=== PATIENT | male | born 1955 | race Caucasian/White ===

== ENCOUNTER 2017-03-30 09:43 | Inpatient (IN) | payer OTHER ==
[~2017-03-30] VITALS: Ht 180.3 cm; Wt 98.1 kg
[2017-03-30] VITALS (12 sets, daily range): BP systolic 96–160; BP diastolic 54–96
[2017-03-30] MEDS ORDERED: NS IV 1000 ML 1,000 ML IV ONE ×2 (09:57→10:57)
[2017-03-30 10:16] LABS: BASOPHILS # (AUTO) 0.1 10^3/uL (0.0-0.1); BASOPHILS % (AUTO) 1 % (0-10); EOSINOPHILS % (AUTO) 0 % (0-10); LYMPHOCYTES # (AUTO) 0.8 X 10^3 (1.0-4.0); LYMPHOCYTES % (AUTO) 16 % (12-44); MEAN CORPUSCULAR HEMOGLOBIN 30 PG (25-34); MEAN CORPUSCULAR HGB CONC 37 G/DL (32-36); MEAN CORPUSCULAR VOLUME 83 FL (80-99); MEAN PLATELET VOLUME 12.2 FL (7.4-10.4); MONOCYTES # (AUTO) 0.5 X 10^3 (0.0-1.0); MONOCYTES % (AUTO) 11 % (0-12); NEUTROPHILS # (AUTO) 3.4 X 10^3 (1.8-7.8); NEUTROPHILS % (AUTO) 72 % (42-75); PLATELET COUNT 55 10^3/uL (130-400); RED BLOOD COUNT 4.52 10^6/uL (4.35-5.85); RED CELL DISTRIBUTION WIDTH 12.6 % (10.0-14.5); WHITE BLOOD COUNT 4.7 10^3/uL (4.3-11.0)
--- NOTE | 2017-03-30 10:19 | Diagnostic Imaging Report ---
PROCEDURE: CT head without contrast. TECHNIQUE: Multiple contiguous axial images were obtained through the brain without the use of intravenous contrast. INDICATION: Headache, confusion, fever. FINDINGS: There is no intracranial hemorrhage, edema, or mass effect. The brain parenchyma and bridges/white differentiation are preserved. There is no hydrocephalus. No extra-axial fluid collection is seen. The calvarium as well as the visualized portions of the paranasal sinuses and orbits appears grossly unremarkable. IMPRESSION: Unremarkable exam. Dictated by: Dictated on workstation # [id number]
--- NOTE | 2017-03-30 10:31 | Diagnostic Imaging Report ---
INDICATION: Headache and confusion and fever Frontal chest obtained at 1032 AM. Heart and mediastinal silhouette are normal in appearance. Lungs are clear. There is no pneumothorax or pleural fluid. IMPRESSION: Negative chest. Dictated by: Dictated on workstation # [id number]
[2017-03-30 10:34] LABS: INR 1.2 (0.8-1.4); PROTHROMBIN TIME PATIENT 14.5 SEC (12.2-14.7)
--- NOTE | 2017-03-30 10:36 | ED General ---
General Chief Complaint: Fever-Adult/Adol Stated Complaint: CONFUSION/FEVER Nursing Triage Note: c/o fever/chills with confusion. Onset 3 days ago. Mild cough. Hx of Type 2 diabetes. Decreased appetite. Nursing Sepsis Screen: Possible Severe Sepsis Risk Source of Information: Patient Exam Limitations: No Limitations History of Present Illness Time Seen by Provider: 09:52 Initial Comments Here with report of increasing confusion over the last 3 days. Mild cough. Reports that he does have diabetes that is not well-controlled. Does have mild fever. states that he actually got up this morning and walked out to his car to go to work but he was not dressed and had not showered or gotten ready at all. Patient admits to being somewhat confused. is very afraid. Denies any significant headaches but does have some mild neck discomfort but he is not able to characterize that. Denies nausea, vomiting or diarrhea. Timing/Duration: 2-3 Days Severity: Moderate Associated Systoms: No Chest Pain, Cough, Fever/Chills, Nausea/Vomiting, No Shortness of Air, Weakness Allergies and Home Medications Allergies Coded Allergies: Penicillins (Verified Allergy, Unknown, 03/30/17) Home Medications Unable to Obtain Active Prescriptions or Reported Meds Constitutional: see HPI, No chills, fever, malaise, weakness EENTM: no symptoms reported Respiratory: see HPI, cough, No short of breath, No wheezing Cardiovascular: no symptoms reported Gastrointestinal: no symptoms reported, No nausea, No vomiting Genitourinary: no symptoms reported Musculoskeletal: no symptoms reported Skin: no symptoms reported Psychiatric/Neurological: See HPI, Weakness All Other Systems Reviewed Negative Unless Noted: Yes Past Ljgdhgp-Eiqrxo-Sxrzey Hx Patient Social History Alcohol Use: Denies Use Recreational Drug Use: No Smoking Status: Never a Smoker Recent Foreign Travel: No Contact w/Someone Who Travel: No Recent Infectious Disease Expo: No Surgeries HX Surgeries: No Respiratory Hx Respiratory Disorders: No Cardiovascular Hx Cardiac Disorders: Yes Cardiac Disorders: Hypertension Neurological Hx Neurological Disorders: No Genitourinary Hx Genitourinary Disorders: No Gastrointestinal Hx Gastrointestinal Disorders: No Musculoskeletal Hx Musculoskeletal Disorders: No Endocrine Hx Endocrine Disorders: Yes Endocrine Disorders: Diabetes, Non-Insulin dep HEENT HX ENT Disorders: No Reviewed Nursing Assessment Reviewed/Agree w Nursing PMH: Yes Family Medical History Significant Family History: No Pertinent Family Hx Physical Exam-Suspected Sepsis Physical Exam Vital Signs Vital Sign - Last 12Hours 03/30/17 10:13 Temp 99.2 Pulse 104 Resp 18 B/P (MAP) 150/79 Pulse Ox 96 O2 Delivery Room Air Capillary Refill : Less Than 3 Seconds Blood Pressure Mean: 102 General Appearance: No Apparent Distress, WD/WN HEENT: PERRL/EOMI, Pharynx Normal Neck: Full Range of Motion, Normal Inspection, Non Tender, Supple Respiratory: Lungs Clear, Normal Breath Sounds Cardiovascular: No Murmur, Tachycardia Gastrointestinal: Non Tender, Soft Back: Normal Inspection, No CVA Tenderness, No Vertebral Tenderness Extremity: Normal Inspection, Normal Range of Motion, Non Tender, No Calf Tenderness Neurologic/Psychiatric: Alert, Oriented x3, Other (appears to be word searching and occasionally forgets conversation midsentence.) Skin: normal color, warm/dry Focused Exam Lactic Acid Level Laboratory Tests Test 03/30/17 10:05 03/30/17 12:10 Lactic Acid Level 2.09 MMOL/L (0.50-2.00) *H Progress/Results/Core Measures Suspected Sepsis Recent Fever Within 48 Hours: Yes Infection Criteria Present: Suspected New Infection New/Unexplained Altered Menta: Yes Sepsis Screen: Possible Severe Sepsis Risk Sepsis Diagnosis: SIRS Temperature:99.2 Pulse: 104 Respiratory Rate: 18 Laboratory Tests 03/30/17 10:05: White Blood Count 4.7 Blood Pressure 150 /79 Mean: 102 Laboratory Tests 03/30/17 10:05: Creatinine 1.26, INR Comment 1.2, Platelet Count 55L, Total Bilirubin 1.9H Results/Orders Lab Results Laboratory Tests Test 03/30/17 09:53 03/30/17 10:05 03/30/17 10:55 03/30/17 12:10 Range/Units Glucometer 307 H 70-110 MG/DL White Blood Count 4.7 4.3-11.0 10^3/uL Red Blood Count 4.52 4.35-5.85 10^6/uL Hemoglobin 13.7 13.3-17.7 G/DL Hematocrit 37 L 40-54 % Mean Corpuscular Volume 83 80-99 FL Mean Corpuscular Hemoglobin 30 25-34 PG Mean Corpuscular Hemoglobin Concent 37 H 32-36 G/DL Red Cell Distribution Width 12.6 10.0-14.5 % Platelet Count 55 L 130-400 10^3/uL Mean Platelet Volume 12.2 H 7.4-10.4 FL Neutrophils (%) (Auto) 72 42-75 % Lymphocytes (%) (Auto) 16 12-44 % Monocytes (%) (Auto) 11 0-12 % Eosinophils (%) (Auto) 0 0-10 % Basophils (%) (Auto) 1 0-10 % Neutrophils # (Auto) 3.4 1.8-7.8 X 10^3 Lymphocytes # (Auto) 0.8 L 1.0-4.0 X 10^3 Monocytes # (Auto) 0.5 0.0-1.0 X 10^3 Eosinophils # (Auto) 0.0 0.0-0.3 10^3/uL Basophils # (Auto) 0.1 0.0-0.1 10^3/uL Prothrombin Time 14.5 12.2-14.7 SEC INR Comment 1.2 0.8-1.4 Activated Partial Thromboplast Time 31 24-35 SEC Sodium Level 126 L 135-145 MMOL/L Potassium Level 5.0 3.6-5.0 MMOL/L Chloride Level 94 L 98-107 MMOL/L Carbon Dioxide Level 22 21-32 MMOL/L Anion Gap 10 5-14 MMOL/L Blood Urea Nitrogen 26 H 7-18 MG/DL Creatinine 1.26 0.60-1.30 MG/DL Estimat Glomerular Filtration Rate 58 BUN/Creatinine Ratio 21 Glucose Level 313 H 70-105 MG/DL Lactic Acid Level 2.09 *H 0.50-2.00 MMOL/L Calcium Level 8.5 8.5-10.1 MG/DL Magnesium Level 1.7 L 1.8-2.4 MG/DL Total Bilirubin 1.9 H 0.1-1.0 MG/DL Aspartate Amino Transf (AST/SGOT) 106 H 5-34 U/L Alanine Aminotransferase (ALT/SGPT) 74 H 0-55 U/L Alkaline Phosphatase 86 40-136 U/L Total Protein 6.9 6.4-8.2 GM/DL Albumin 3.7 3.2-4.5 GM/DL Urine Color THUY H Urine Clarity CLEAR Urine pH 5 5-9 Urine Specific [place] 1.020 1.016-1.022 Urine Protein 3+ H NEGATIVE Urine Glucose (UA) 4+ H NEGATIVE Urine Ketones 3+ H NEGATIVE Urine Nitrite NEGATIVE NEGATIVE Urine Bilirubin 1+ H NEGATIVE Urine Urobilinogen 4 H NORMAL MG/DL Urine Leukocyte Esterase NEGATIVE NEGATIVE Urine RBC (Auto) 2+ H NEGATIVE Urine RBC RARE /HPF Urine WBC RARE /HPF Urine Squamous Epithelial Cells RARE /HPF Urine Crystals NONE /LPF Urine Bacteria NEGATIVE /HPF Urine Casts NONE /LPF Urine Mucus SMALL H /LPF Urine Culture Indicated NO My Orders Orders - JANY PERKINS MD Cbc With Automated Diff (03/30/17 09:57) Comprehensive Metabolic Panel (03/30/17 09:57) Lactic Acid Analyzer (03/30/17 09:57) Blood Culture (03/30/17 09:57) Sputum Culture (03/30/17 09:57) Ua Culture If Indicated (03/30/17 09:57) Protime With Inr (03/30/17 09:57) Partial Thromboplastin Time (03/30/17 09:57) Chest 1 View, Ap/Pa Only (03/30/17 09:57) O2 (03/30/17 09:57) Saline Lock/Iv-Start (03/30/17 09:57) Saline Lock/Iv-Start (03/30/17 09:57) Vital Signs Adult Sepsis Patie Q1HR (03/30/17 09:57) Remove Rings In Anticipation O (03/30/17 09:57) Ct Head Wo (03/30/17 09:57) Accucheck Stat ONCE (03/30/17 09:57) Magnesium (03/30/17 09:57) Tick Panel With Lyme Eia (03/30/17 09:57) Saline Lock/Iv-Start (03/30/17 09:57) Ns Iv 1000 Ml (Sodium Chloride 0.9%) (03/30/17 09:57) Ns Iv 1000 Ml (Sodium Chloride 0.9%) (03/30/17 10:57) Saline Lock/Iv-Start (03/30/17 10:57) Insulin (Regular) Human (Humulin R (Per (03/30/17 10:57) Us Gallbladder 47703 (03/30/17 11:06) Medications Given in ED Current Medications Medications Dose Ordered Sig/Stephanie Route Start Time Stop Time Status Last Admin Dose Admin Sodium Chloride 1,000 ml @ 0 mls/hr Q0M ONCE IV 03/30/17 09:57 03/30/17 10:00 DC 03/30/17 11:01 0 MLS/HR Sodium Chloride 1,000 ml @ 0 mls/hr Q0M ONCE IV 03/30/17 10:57 03/30/17 10:59 DC 03/30/17 12:20 1,000 MLS/HR Vital Signs/I&O Vital Sign - Last 12Hours 03/30/17 10:13 Temp 99.2 Pulse 104 Resp 18 B/P (MAP) 150/79 Pulse Ox 96 O2 Delivery Room Air Capillary Refill : Less Than 3 Seconds Blood Pressure Mean: 102 Progress Note : Progress Note Seen and evaluated. IV, labs, UA, chest x-ray, normal saline 1 L bolus, lactic acid and blood cultures ordered. Monitor patient. Fingerstick blood sugar done. CT head ordered. Monitor patient. 1200: Patient does not really improved. Findings do not suggest significant infectious concerns although does have elevated lactic acid. This may be related to his blood glucose level although meningitis is not completely ruled out. The family is thinking about LP. 1214: I did discuss the case with Dr. Crawford. We both agree that LP is indicated. is not currently at bedside. 1225: I have discussed the case with the . Second liter of normal saline is running currently. I do believe patient needs LP and agrees. Anesthesia will the lumbar puncture. We will admit the patient to the hospital for further workup and including the LP. Dr. Crawford will follow LP results. CSF standard panel as well as viral culture and CSF for West Nile and enterovirus PCR ordered. Admit, inpatient status. Family verbalize understanding and agreement with plan. Diagnostic Imaging Diagonstic Imaging: CT Plain Films/CT/US/NM/MRI: head Comments NAME: GENO BECKFORD [facility] REC#: [id number] PT STATUS: REG ER : 1955 PHYSICIAN: JANY PERKINS MD ADMIT DATE: 03/30/17/ER Signed Date of Exam: 03/30/17 CT HEAD WO PROCEDURE: CT head without contrast. TECHNIQUE: Multiple contiguous axial images were obtained through the brain without the use of intravenous contrast. INDICATION: Headache, confusion, fever. FINDINGS: There is no intracranial hemorrhage, edema, or mass effect. The brain parenchyma and bridges/white differentiation are preserved. There is no hydrocephalus. No extra-axial fluid collection is seen. The calvarium as well as the visualized portions of the paranasal sinuses and orbits appears grossly unremarkable. IMPRESSION: Unremarkable exam. Dictated by: Dictated on workstation # [id number] Dict: 03/30/17 1014 Trans: 03/30/17 1020 Interpreted by: TRAVIS MARCH MD Electronically signed by: TRAVIS MARCH MD 03/30/17 1020 Diagonstic Imaging: Xray Plain Films/CT/US/NM/MRI: chest Comments VIA [place], [place] NAME: GENO BECKFORD [facility] REC#: [id number] PT STATUS: REG ER : 1955 PHYSICIAN: JANY PERKINS MD ADMIT DATE: 03/30/17/ER Draft Date of Exam:03/30/17 CHEST 1 VIEW, AP/PA ONLY INDICATION: Headache and confusion and fever Frontal chest obtained at 1032 AM. Heart and mediastinal silhouette are normal in appearance. Lungs are clear. There is no pneumothorax or pleural fluid. IMPRESSION: Negative chest. Dictated on workstation # [id number] Dict: 03/30/17 1025 Trans: 03/30/17 1031 JAI [id number] Interpreted by: RENÉE QUINONEZ MD Electronically signed by: Diagonstic Imaging: Ultrasound Plain Films/CT/US/NM/MRI: abdomen Comments VIA [facility], [facility]. [place], [place] NAME: BECKFORDGENO [facility] REC#: [id number] PT STATUS: REG ER : 1955 PHYSICIAN: JANY PERKINS MD ADMIT DATE: 03/30/17/ER Draft Date of Exam:03/30/17 US GALLBLADDER [id number] PROCEDURE: US Gallbladder. TECHNIQUE: Multiple real-time grayscale images were obtained over the right upper quadrant in various projections. INDICATION: Confusion. Abdominal pain. FINDINGS: The pancreas is largely obscured by bowel gas. The liver is fairly homogeneous with no focal lesion. It is, however, mildly enlarged measuring 20 cm in craniocaudal diagonal dimension. It is also hyperechoic which may relate to fatty infiltration. The gallbladder demonstrates sludge with no stones. A hyperechoic focus along the wall of the gallbladder is compatible with a polyp measuring 4 mm. No pericholecystic fluid and no wall thickening. The sonographic [place] sign is reportedly negative. The CBD is 3 mm in caliber. The right kidney is 11.4 cm in length with no nodular focus or focal lesion. No fluid collection in the upper right abdomen is seen. IMPRESSION: 1. There is gallbladder sludge and a 4 mm gallbladder polyp seen. 2. Mild hepatomegaly with hyperechoic parenchyma, presumably related to fatty infiltration. Dictated on workstation # [id number] Dict: 03/30/17 1222 Trans: 03/30/17 1227 [id number] Interpreted by: TRAVIS MARCH MD Electronically signed by: Departure Communication Time/Spoke to Admitting Phy: 12:14 Impression Impression: Primary Impression: Altered mental status Qualified Codes: R41.82 - Altered mental status, unspecified Additional Impressions: Elevated lactic acid level Uncontrolled diabetes mellitus with hyperglycemia Qualified Codes: E11.65 - Type 2 diabetes mellitus with hyperglycemia Disposition: ADMITTED INPATIENT Condition: Stable Decision to Admit Reason: Admit from ER (General) Decision to Admit/Date: Mar 30, 2017 Time/Decision to Admit Time: 12:14 Departure-Patient Inst. Referrals: BARBARA PHILLIPS MD (PCP/Family) Primary Care Physician Scripts Unable to Obtain Active Prescriptions or Reported Meds JANY PERKINS MD Mar 30, 2017 10:36
[2017-03-30 10:43] LABS: ALBUMIN 3.7 GM/DL (3.2-4.5); BILIRUBIN,TOTAL 1.9 MG/DL (0.1-1.0); CALCIUM 8.5 MG/DL (8.5-10.1); CREATININE SERUM 1.26 MG/DL (0.60-1.30); MAGNESIUM 1.7 MG/DL (1.8-2.4); TOTAL PROTEIN 6.9 GM/DL (6.4-8.2)
[2017-03-30] MEDS ORDERED: inSUlin (REGULAR) HUMAN 1 UNIT/0.01 ML (CHARGE PER UNIT) IV STA (10:57)
[2017-03-30 11:00] LABS: KETONES,URINE 3+ (NEGATIVE); LEUKOCYTE ESTERASE ,URINE NEGATIVE (NEGATIVE); NITRITE,URINE NEGATIVE (NEGATIVE); PH,URINE 5 (5-9); PROTEIN,URINE 3+ (NEGATIVE); UROBILINOGEN,URINE 4 MG/DL (NORMAL)
[2017-03-30 11:26] LABS: BILIRUBIN,URINE 1+ (NEGATIVE)
[2017-03-30 11:27] LABS: SQUAMOUS EPITHELIAL CELL,UR RARE /HPF; WBC,URINE RARE /HPF
--- NOTE | 2017-03-30 12:27 | Diagnostic Imaging Report ---
PROCEDURE: US Gallbladder. TECHNIQUE: Multiple real-time grayscale images were obtained over the right upper quadrant in various projections. INDICATION: Confusion. Abdominal pain. FINDINGS: The pancreas is largely obscured by bowel gas. The liver is fairly homogeneous with no focal lesion. It is, however, mildly enlarged measuring 20 cm in craniocaudal diagonal dimension. It is also hyperechoic which may relate to fatty infiltration. The gallbladder demonstrates sludge with no stones. A hyperechoic focus along the wall of the gallbladder is compatible with a polyp measuring 4 mm. No pericholecystic fluid and no wall thickening. The sonographic [place] sign is reportedly negative. The CBD is 3 mm in caliber. The right kidney is 11.4 cm in length with no nodular focus or focal lesion. No fluid collection in the upper right abdomen is seen. IMPRESSION: 1. There is gallbladder sludge and a 4 mm gallbladder polyp seen. 2. Mild hepatomegaly with hyperechoic parenchyma, presumably related to fatty infiltration. Dictated by: Dictated on workstation # [id number]
[2017-03-30] MEDS ORDERED: ACETAMINOPHEN 325 MG TABLET/CAPLET (TYLENOL) ONE (13:26)
[2017-03-30] MEDS: NS IV 1000 ML 1,000 ML IV SCH (13:39)
[2017-03-30] MEDS ORDERED: VANCOMYCIN INJECTION 0.1 MG in NS (IVPB) 250 ML IV SCH (13:45)
[2017-03-30] MEDS ORDERED: SULFAMETH IV SCH (13:45)
[2017-03-30] MEDS ORDERED: TRIMETH IV SCH (13:45)
[2017-03-30] MEDS ORDERED: ONDANSETRON 4 MG/2 ML (SDV) Z0FRAN IV PRN (13:45)
[2017-03-30] MEDS ORDERED: ACETAMINOPHEN 325 MG TABLET/CAPLET (TYLENOL) PO ONE (13:45)
[2017-03-30] MEDS ORDERED: CATHETER FLUSH 10 ML SYR IV PRN (13:45)
[2017-03-30] MEDS ORDERED: VANCOMYCIN 1500 MG/NS 500 ML IVPB IV SCH ×2 (14:00)
[2017-03-30] MEDS: cefTRIAXone INJECTION 2,000 MG in NS (IVPB) 50 ML IV SCH (14:05)
[2017-03-30] MEDS: DEXAMETHASONE 4 MG/ML SDV (DECADRON) IV SCH ×2 (14:30→17:43)
[2017-03-30] MEDS ORDERED: ATOR40TA70 PO (14:44)
[2017-03-30] MEDS ORDERED: MULT1TAB69 PO (14:44)
[2017-03-30] MEDS ORDERED: GLIM4TAB PO (14:44)
[2017-03-30] MEDS ORDERED: METF1000 PO (14:44)
[2017-03-30] MEDS ORDERED: LISI10TA2 PO (14:44)
[2017-03-30] MEDS ORDERED: OMEG-9 PO (14:44)
[2017-03-30] MEDS ORDERED: TRIMETHO IV SCH ×2 (15:00)
[2017-03-30] MEDS ORDERED: SULFAMETHOXAZOLE IV SCH ×2 (15:00)
[2017-03-30] MEDS ORDERED: D5W IV SCH ×2 (15:00)
[2017-03-30] MEDS ORDERED: SULFAMETHOXAZOLE/TRIMETHO INJ 480 MG in D5W 500 ML IV SOLUTION 500 ML IV SCH (15:00)
[2017-03-30] MEDS: inSUlin (REGULAR) HUMAN 1 UNIT/0.01 ML (CHARGE PER UNIT) SC SCH ×2 (15:11→21:49)
[2017-03-30] MEDS ORDERED: NS IV 500 ML 500 ML ONE (15:13)
[2017-03-30 17:50] LABS: ALANINE AMINOTRANSFERASE 65 U/L (0-55); ALBUMIN 3.1 GM/DL (3.2-4.5); ANION GAP 6 MMOL/L (5-14); ASPARTATE AMINO TRANSFERASE 101 U/L (5-34); BILIRUBIN,TOTAL 1.1 MG/DL (0.1-1.0); BLOOD UREA NITROGEN 26 MG/DL (7-18); BUN/CREATININE RATIO 25; CALCIUM 7.6 MG/DL (8.5-10.1); CARBON DIOXIDE 21 MMOL/L (21-32); CHLORIDE 100 MMOL/L (98-107); CREATININE SERUM 1.04 MG/DL (0.60-1.30); GFR ESTIMATED > 60; GLUCOSE 266 MG/DL (70-105); SODIUM 127 MMOL/L (135-145)
--- OUTSIDE RECORDS SUMMARY | 2017-03-30 17:58 | XMS REPORT ---
Author Author BARBARA PHILLIPS [facility] eClinicalWorks Address Unknown Phone Unavailable Care Team Providers Care Surgical Asst Name Role Phone BARBARA PHILLIPS CP Unavailable Allergies, Adverse Reactions, Alerts Substance Reaction Event Type Penicillamine hives Drug Allergy Problems Problem Type Condition Code Onset Dates Condition Status Problem Hyperlipidemia E78.5 Active Assessment Diabetes E11.9 Active Problem Diabetes E11.9 Active Assessment Hyperlipidemia E78.5 Active Medications Medication Code System Code Instructions Start Date End Date Status Dosage GlipiZIDE [facility] [address]-03 5 MG Orally Once a day 1 tablet Pravastatin Sodium [facility] [address]-78 10 MG Orally Once a day 1 tablet metformin [facility] [address]-13 1,000 mg April 22, 2014 take 1 tablet by Oral route with morning and evening meals 2 times per day Procedures Procedure Coding System Code Date Office Visit, Est Pt., Level 4 CPT-4 17711 Aug 26, 2015 GLYCATED HEMOGLOBIN TEST CPT-4 93694 Aug 26, 2015 Vital Signs Date/Time: Aug 26, 2015 Temperature 97.2 F Weight 225 lbs Height 71 in BMI 31.38 Index Blood Pressure Diastolic 74 mmHg Blood Pressure Systolic 118 mmHg Cardiac Monitoring Heart Rate 70 bpm Results No Known Results Summary Purpose eClinicalWorks Submission
--- OUTSIDE RECORDS SUMMARY | 2017-03-30 17:58 | XMS REPORT ---
Author Author BARBARA PHILLIPS [facility] eClinicalWorks Address Unknown Phone Unavailable Care Team Providers Care Interior Painter Name Role Phone BARBARA PHILLIPS Unavailable Allergies No Known Allergies Problems Problem Type Condition Code Onset Dates Condition Status Problem Hyperlipidemia E78.5 Active Problem Diabetes E11.9 Active Medications Medication Code System Code Instructions Start Date End Date Status Dosage GlipiZIDE [facility] [address]-63 5 MG Orally Once a day 1 tablet Pravastatin Sodium [facility] [address]-15 10 MG Orally Once a day 1 tablet metformin [facility] [address]-11 1,000 mg oral 2 times a day April 22, 2014 1 tablet Results No Known Results Summary Purpose eClinicalWorks Submission
--- OUTSIDE RECORDS SUMMARY | 2017-03-30 17:58 | XMS REPORT ---
Author Author BARBARA PHILLIPS [facility] eClinicalWorks Address Unknown Phone Unavailable Care Team Providers Care Windows Application Packager Name Role Phone BARBARA PHILLIPS Unavailable Allergies No Known Allergies Problems Problem Type Condition Code Onset Dates Condition Status Problem Hyperlipidemia E78.5 Active Problem Diabetes E11.9 Active Medications Medication Code System Code Instructions Start Date End Date Status Dosage Amaryl [facility] [address]-83 4 MG Once a day December 16, 2011 1 tablet by Oral route 1 time per day Lisinopril [facility] [address]-25 10 MG Orally Once a day Sep 01, 2015 1 tablet metformin [facility] [address]-87 1,000 mg oral 2 times a day April 22, 2014 1 tablet Pravastatin Sodium [facility] [address]-12 20 MG Orally Once a day 1 tablet Results No Known Results Summary Purpose eClinicalWorks Submission
--- OUTSIDE RECORDS SUMMARY | 2017-03-30 17:58 | XMS REPORT ---
Author Author BARBARA PHILLIPS [facility] eClinicalWorks Address Unknown Phone Unavailable Care Team Providers Care Beck Operator Name Role Phone BARBARA PHILLIPS Unavailable Allergies No Known Allergies Problems Problem Type Condition Code Onset Dates Condition Status Problem Diabetes E11.9 Active Problem Hyperlipidemia E78.5 Active Problem Essential (primary) hypertension I10 Active Assessment Essential (primary) hypertension I10 Active Medications Medication Code System Code Instructions Start Date End Date Status Dosage Lisinopril [facility] [address]-13 10 MG Orally Once a day Sep 01, 2015 1 tablet Results No Known Results Summary Purpose eClinicalWorks Submission
--- OUTSIDE RECORDS SUMMARY | 2017-03-30 17:59 | XMS REPORT ---
Author BARBARA Candelaria [facility] eClinicalWorks Address Unknown Phone Unavailable Care Team Providers Care Packing Supervisor Name Role Phone BARBARA PHILLIPS CP Unavailable Allergies No Known Allergies Problems Problem Type Condition Code Onset Dates Condition Status Problem Diabetes mellitus without mention of complication, type II or unspecified type, not stated as uncontrolled 250.00 Active Problem PPV23 (PNEUMOVAX) DX V03.82 Active Problem Open wound of foot except toe(s) alone, without mention of complication 892.0 Active Problem Need for prophylactic vaccination and inoculation, Influenza V04.81 Active Medications No Known Medications Results No Known Results Summary Purpose eClinicalWorks Submission
--- OUTSIDE RECORDS SUMMARY | 2017-03-30 17:59 | XMS REPORT ---
Author Author BARBARA PHILLIPS [facility] eClinicalWorks Address Unknown Phone Unavailable Care Team Providers Care Gas Plant Dispatcher Name Role Phone BARBARA PHILLIPS Unavailable Allergies No Known Allergies Problems Problem Type Condition Code Onset Dates Condition Status Problem Hyperlipidemia E78.5 Active Problem Diabetes E11.9 Active Medications No Known Medications Results No Known Results Summary Purpose eClinicalWorks Submission
[2017-03-30 18:10] LABS: THYROID STIMULATING HORMONE 0.33 UIU/ML (0.35-4.94)
--- OUTSIDE RECORDS SUMMARY | 2017-03-30 18:19 | XMS REPORT | Continuity of Care Document ---
Author Author [facility] Address Unknown Phone Unavailable Allergies Active Description Code Type Severity Reaction Onset Reported/Identified Relationship to Patient Clinical Status Yes Penicillins Drug Allergy N/A N/A 09/01/2010 Medications Problems Date Dx Coded Attending Type Code Diagnosis Diagnosed By 09/01/2010 PERICO HOPE DO 250.02 DIABETES MELLITUS TYPE 2 - UNCOMPLICATED, UNCONTROLLED 09/01/2010 PERICO HOPE DO K 250.62 NEUROPATHY WITH NEUROLOGICAL MANIFESTATIONS TYPE II OR UNSPECIFIED TYPE UNCONTROLLED 09/01/2010 PERICO HOPE DO K 272.4 HYPERLIPIDEMIA 09/01/2010 ЮЛИЯ HOPE DOA K 401.9 ESSENTIAL HYPERTENSION 09/01/2010 ЮЛИЯ HOPE DOA K 702.0 ACTINIC KERATOSIS 09/01/2010 ЮЛИЯ HOPE DOA K 250.02 DIABETES MELLITUS TYPE 2 - UNCOMPLICATED, UNCONTROLLED 09/01/2010 PERICO HOPE DO K 250.62 NEUROPATHY WITH NEUROLOGICAL MANIFESTATIONS TYPE II OR UNSPECIFIED TYPE UNCONTROLLED 09/01/2010 PERICO HOPE DO K 272.4 HYPERLIPIDEMIA 09/01/2010 ЮЛИЯ HOPE DOA K 401.9 ESSENTIAL HYPERTENSION 09/01/2010 ЮЛИЯ HOPE DOA K 702.0 ACTINIC KERATOSIS 09/01/2010 BARBARA PHILLIPS MD 250.02 DIABETES MELLITUS TYPE 2 - UNCOMPLICATED, UNCONTROLLED 09/01/2010 BARBARA PHILLIPS MD 250.62 NEUROPATHY WITH NEUROLOGICAL MANIFESTATIONS TYPE II OR UNSPECIFIED TYPE UNCONTROLLED 09/01/2010 BARBARA PHILLIPS MD 272.4 HYPERLIPIDEMIA 09/01/2010 BARBARA PHILLIPS MD 401.9 ESSENTIAL HYPERTENSION 09/01/2010 BARBRAA PHILLIPS MD 702.0 ACTINIC KERATOSIS 04/10/2012 PERICO HOPE DO K 250.00 DIABETES MELLITUS TYPE 2 04/10/2012 ЮЛИЯ HOPE DOA K 250.00 DIABETES MELLITUS TYPE 2 04/10/2012 BARBARA PHILLIPS MD 250.00 DIABETES MELLITUS TYPE 2 06/16/2012 PERICO HOPE DO V03.82 PPV23 (PNEUMOVAX) DX 06/16/2012 PERICO HOPE DO V04.81 FLU DX (3 YRS AND ABOVE, IM) 06/16/2012 PERICO HOPE DO V03.82 PPV23 (PNEUMOVAX) DX 06/16/2012 PERICO HOPE DO V04.81 FLU DX (3 YRS AND ABOVE, IM) 06/16/2012 BARBARA PHILLIPS MD V03.82 PPV23 (PNEUMOVAX) DX 06/16/2012 BARBARA PHILLIPS MD V04.81 FLU DX (3 YRS AND ABOVE, IM) 04/04/2014 PERICO HOPE DO 892.0 OPEN WOUND OF FOOT EXCEPT TOE(S) ALONE WITHOUT COMPLICATION 04/04/2014 BARBARA PHILLIPS MD 892.0 OPEN WOUND OF FOOT EXCEPT TOE(S) ALONE WITHOUT COMPLICATION Procedures Code [place] [address] ROUTINE VENIPUNCTURE 05/07/2014 51470 A1C (IN-HOUSE) 85694 MICRO ALBUMIN-IN HOUSE 05/07/2014 [id number] GFR CALC (RESULT ONLY) 05/07/2014 02450 CMP 05/07/2014 Results Encounters ACCT No. Visit Date/Time Discharge Status Pt. Type Provider Facility Loc./Unit Complaint [id number] 05/07/2014 09:30:00 05/07/2014 23: 59:59 CLS Outpatient BARBARA PHILLIPS MD [id number] 04/04/2014 16:38:00 04/04/2014 23: 59:59 CLS Outpatient PERICO HOPE DO [id number] 06/16/2012 15:09:00 06/16/2012 23: 59:59 CLS Outpatient PERICO HOPE DO
--- NOTE | 2017-03-30 18:38 | Anesthesia-Procedure Note ---
Procedure Start/Stop Time Date of Procedure: Mar 30, 2017 Start Time: 17:57 Stop Time: 18:23 Procedures/Interventions Discussed Risk,Benefits: Yes Patient Consents: Yes Position: Lying, L4-5, Right Sterile Technique: Yes Opening Pressure: 21 mmHG Fluid Color: Clear Spinal Needle Used: Other (22 G Quinke) Procedure Notes Spoke with Dr. Crawford and discussed risk of lumbar puncture with patient's thrombocytopenia. She felt due to unknown origin of fever/sepsis, the risk of a spinal hematoma outweighed the benefit of waiting. Patient will be getting platelets. Also discussed at length with patient and patient's family regarding increased risk and they wish to proceed. After platelets were started and infusing, the patient was placed in a right lateral decubitus position and the back was prepped with betadine. The L4-L5 interspace was localized with 1% lidocaine and a 22G Quinke needle was inserted atraumatically. Clear CSF was observed and opening pressure of 21 mmHG was obtained. Samples of CSF were obtained and sent to lab. Patient tolerated well and was instructed to report any signs of spinal hematoma, including back pain, numbness or weakness of lower extremities. SVEN BENDER CRNA Mar 30, 2017 18:38
[2017-03-30 19:06] LABS: CSF GLUCOSE 143 MG/DL (50-80); CSF TOTAL PROTEIN 74 MG/DL (15-40)
[2017-03-30 19:24] LABS: APPEARANCE,CSF CLEAR; WHITE BLOOD CELL,CSF 11 CELLS (0-5)
[2017-03-30 19:55] LABS: COLOR,CSF COLORLESS
[2017-03-30 20:47] LABS: LYMPHOCYTES,CSF 32 %
--- NOTE | 2017-03-30 21:56 | History & Physicial ([facility]) ---
HPI History of Present Illness: 61 yo male presented to ER after his essentially insisted that he come. He states that he started feeling sick on March 26. He thought he was getting a little better and tried to get up and do things Tuesday and then felt very poorly again. By "sick" he means he felt woozy, nauseated, mild headache, intermittent fever and had intermittent diarrhea. He was overall exhausted and weak and laid in bed for several days with minimal eating or drinking. Today, he felt he needed to go to work, so he asked his to take him and she thought he was using the bathroom, but when she looked for him, she found him outside naked wearing a disposable cup on his foot, looking for his car keys. He states he was worried he was going to be late and knows no one would be around so he was trying to find his keys so he wouldn't be late to work. He put the cup on his foot to protect an ulcer on his foot because he didn't have shoes handy. He minimizes this episode, but states he was definitely different than his normal self, seemed very slow to process and was making facial expressions that indicated confusion. She does note he is much better/ resolved now. [place] and he does have known tick exposure- usually checks skin every day so he doesn't think he would have a tick on for more than 24 hours. Last time he recalls removing a tick was a week ago today. He states that mosquitos rarely bite him and his is more prone to that. He was on Bactrim for his foot ulcer started on 03/18 for 10 day course. When he got sick, he stopped taking it for a bit and when he was feeling a little better he started it again and then felt worse again so he wonders if any of this could be medication related. He denies any rashes. He has taken ibuprofen and naproxen with this illness, but denies using acetaminophen. Source: patient, family Date seen by provider: Mar 30, 2017 Time Seen by Provider: 20:00 Attending Physician Olivia Crawford MD PCP Uziel Phillips MD Consult Date of Admission Mar 30, 2017 at 12:30 pm Home Medications Home Medications Reviewed patient Home Medication Reconciliation Form Allergies Coded Allergies: Penicillins (Verified Allergy, Unknown, 03/30/17) [id number]-[id number]-Obgadp Hx Patient Social History Alcohol Use: Denies Use Recreational Drug Use: No Smoking Status: Never a Smoker 2nd Hand Smoke Exposure: Yes (father smoked 2 ppd while growing up) Recent Foreign Travel: No Contact w/other who traveled: No Recent Hopitalizations: No Recent Infectious Disease Expo: No Physical Abuse Screen: No Sexual Abuse: No Immunizations Up To Date Date of Pneumonia Vaccine: Aug 30, 2016 Past Medical History PMHx: DMII HTN PSurgHx: Tonsillectomy Family Medical History Significant Family History: Cancer, Diabetes Review of Systems ([facility]) Constitutional: chills, fever, malaise, weakness EENTM: throat pain (sore throat briefly at onset of illness, resolved now), No blurred vision, No double vision, No hearing loss, No nose congestion, No vision loss Respiratory: cough Cardiovascular: No chest pain Gastrointestinal: No abdominal pain, No constipation, diarrhea, loss of appetite, nausea, No vomiting Genitourinary: No dysuria Musculoskeletal: joint pain (left shoulder chronic issues with bone spur, both wrists with recent illness) Skin: No rash, other (ulcer on left foot) Psychiatric/Neurological: Denies Anxiety, Denies Depressed Reviewed Test Results Reviewed Test Results Lab Laboratory Tests Test 03/30/17 09:53 03/30/17 10:05 03/30/17 10:55 03/30/17 12:10 Range/Units Glucometer 307 H 70-110 MG/DL White Blood Count 4.7 4.3-11.0 10^3/uL Red Blood Count 4.52 4.35-5.85 10^6/uL Hemoglobin 13.7 13.3-17.7 G/DL Hematocrit 37 L 40-54 % Mean Corpuscular Volume 83 80-99 FL Mean Corpuscular Hemoglobin 30 25-34 PG Mean Corpuscular Hemoglobin Concent 37 H 32-36 G/DL Red Cell Distribution Width 12.6 10.0-14.5 % Platelet Count 55 L 130-400 10^3/uL Mean Platelet Volume 12.2 H 7.4-10.4 FL Neutrophils (%) (Auto) 72 42-75 % Lymphocytes (%) (Auto) 16 12-44 % Monocytes (%) (Auto) 11 0-12 % Eosinophils (%) (Auto) 0 0-10 % Basophils (%) (Auto) 1 0-10 % Neutrophils # (Auto) 3.4 1.8-7.8 X 10^3 Lymphocytes # (Auto) 0.8 L 1.0-4.0 X 10^3 Monocytes # (Auto) 0.5 0.0-1.0 X 10^3 Eosinophils # (Auto) 0.0 0.0-0.3 10^3/uL Basophils # (Auto) 0.1 0.0-0.1 10^3/uL Prothrombin Time 14.5 12.2-14.7 SEC INR Comment 1.2 0.8-1.4 Activated Partial Thromboplast Time 31 24-35 SEC Sodium Level 126 L 135-145 MMOL/L Potassium Level 5.0 3.6-5.0 MMOL/L Chloride Level 94 L 98-107 MMOL/L Carbon Dioxide Level 22 21-32 MMOL/L Anion Gap 10 5-14 MMOL/L Blood Urea Nitrogen 26 H 7-18 MG/DL Creatinine 1.26 0.60-1.30 MG/DL Estimat Glomerular Filtration Rate 58 BUN/Creatinine Ratio 21 Glucose Level 313 H 70-105 MG/DL Lactic Acid Level 2.09 *H 2.55 *H 0.50-2.00 MMOL/L Calcium Level 8.5 8.5-10.1 MG/DL Magnesium Level 1.7 L 1.8-2.4 MG/DL Total Bilirubin 1.9 H 0.1-1.0 MG/DL Aspartate Amino Transf (AST/SGOT) 106 H 5-34 U/L Alanine Aminotransferase (ALT/SGPT) 74 H 0-55 U/L Alkaline Phosphatase 86 40-136 U/L Total Protein 6.9 6.4-8.2 GM/DL Albumin 3.7 3.2-4.5 GM/DL Urine Color THUY H Urine Clarity CLEAR Urine pH 5 5-9 Urine Specific [place] 1.020 1.016-1.022 Urine Protein 3+ H NEGATIVE Urine Glucose (UA) 4+ H NEGATIVE Urine Ketones 3+ H NEGATIVE Urine Nitrite NEGATIVE NEGATIVE Urine Bilirubin 1+ H NEGATIVE Urine Urobilinogen 4 H NORMAL MG/DL Urine Leukocyte Esterase NEGATIVE NEGATIVE Urine RBC (Auto) 2+ H NEGATIVE Urine RBC RARE /HPF Urine WBC RARE /HPF Urine Squamous Epithelial Cells RARE /HPF Urine Crystals NONE /LPF Urine Bacteria NEGATIVE /HPF Urine Casts NONE /LPF Urine Mucus SMALL H /LPF Urine Culture Indicated NO Urine Random Sodium 59 50-200 MMOL/L Test 03/30/17 14:45 03/30/17 14:59 03/30/17 16:45 03/30/17 17:20 Range/Units Lactic Acid Level 1.33 0.50-2.00 MMOL/L Glucometer 245 H 70-110 MG/DL Sodium Level 127 L 135-145 MMOL/L Potassium Level 5.0 3.6-5.0 MMOL/L Chloride Level 100 98-107 MMOL/L Carbon Dioxide Level 21 21-32 MMOL/L Anion Gap 6 5-14 MMOL/L Blood Urea Nitrogen 26 H 7-18 MG/DL Creatinine 1.04 0.60-1.30 MG/DL Estimat Glomerular Filtration Rate > 60 BUN/Creatinine Ratio 25 Glucose Level 266 H 70-105 MG/DL Calcium Level 7.6 L 8.5-10.1 MG/DL Total Bilirubin 1.1 H 0.1-1.0 MG/DL Aspartate Amino Transf (AST/SGOT) 101 H 5-34 U/L Alanine Aminotransferase (ALT/SGPT) 65 H 0-55 U/L Alkaline Phosphatase 73 40-136 U/L Total Protein 6.0 L 6.4-8.2 GM/DL Albumin 3.1 L 3.2-4.5 GM/DL Thyroid Stimulating Hormone (TSH) 0.33 L 0.35-4.94 UIU/ML Free Thyroxine 0.83 0.70-1.48 NG/DL Test 03/30/17 18:23 03/30/17 20:56 Range/Units CSF Tube Number 4 CSF Appearance CLEAR CSF Color COLORLESS CSF WBC 11 H 0-5 CELLS CSF RBC 0 0-0 CELLS CSF Lymphocytes 32 % CSF Mononuclear WBCs 68 % CSF Polynuclear WBCs 0 % CSF Glucose 143 H 50-80 MG/DL CSF Total Protein 74 H 15-40 MG/DL Glucometer 371 H 70-110 MG/DL Radiology 03/30 Gall bladder US: IMPRESSION: 1. There is gallbladder sludge and a 4 mm gallbladder polyp seen. 2. Mild hepatomegaly with hyperechoic parenchyma, presumably related to fatty infiltration. 03/30 CXR: Unremarkable 03/[address]: Unremarkable Physical Exam-([facility]) Physical Exam Vital Signs VS - Last 72 Hours, by Label 7/503/30/17 03/30/17 03/30/17 10:13 13:05 13:36 14:00 Temp 99.2 99.2 102.9 102.8 Pulse 104 95 Resp 18 18 B/P (MAP) 150/79 Pulse Ox 96 96 O2 Delivery Room Air 03/30/17 03/30/17 03/30/17 03/30/17 15:00 15:37 15:57 16:00 Temp 101.3 101.3 101.2 101.2 Pulse 96 96 85 88 Resp 24 24 20 20 B/P (MAP) 118/54 118/54 108/67 108/67 Pulse Ox 97 97 96 97 O2 Delivery Room Air Room Air Room Air Room Air 03/30/17 03/30/17 03/30/17 03/30/17 17:00 17:28 18:00 18:02 Temp 101.1 100.7 101.1 99.9 Pulse 86 98 83 83 Resp 22 20 20 20 B/P (MAP) 111/96 114/68 96/61 101/62 Pulse Ox 97 97 97 97 O2 Delivery Room Air Room Air Room Air Room Air 03/30/17 03/30/17 03/30/17 18:21 19:12 19:25 Temp 100.4 100.6 101.0 Pulse 77 91 89 Resp 20 24 18 B/P (MAP) 96/61 135/73 135/73 Pulse Ox 98 97 O2 Delivery Room Air Room Air Room Air Capillary Refill : Less Than 3 Seconds General Appearance: WD/WN, no apparent distress Eyes: Bilateral Eye EOMI, Bilateral Eye PERRL, Bilateral Eye Scleral Icterus HEENT: pharynx normal, No pharyngeal erythema, No tonsillar exudate Respiratory: lungs clear, normal breath sounds, no respiratory distress Cardiovascular: regular rate, rhythm, no edema, no murmur Peripheral Pulses: 2+ Dorsalis Pedis (R), 2+ Left Dors-Pedis (L) Gastrointestinal: normal bowel sounds, non tender, soft Extremities: no pedal edema 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 Suspected sepsis 2. Altered mental status 3. Hyponatremia 4. Thrombocytopenia 5. Transaminitis/hyperbilirubinemia 6. DMII Plan 1. Suspected severe sepsis- on admission not clear, but at 1330 received notification of fever- febrile, tachycardic, elevated lactic acid -Source unclear- UA unremarkable, CXR unremarkable, possible meningoencephalitis or non-specific viral infection -Antibiotics targed to bacterial meningitis while obtaining labs/LP results- initially started on vancomycin, ceftriaxone and trimethoprim-sulfamethoxazole ( allergy to pencillin) and dexamethasone -Repeat lactic acid normal after IVF 2. Altered mental status- CT head normal -Due to hyponatremia/dehydration/fatigue vs VP [employer] infection/meningoencephalitis -LP done with very slightly elevated WBC, no PMNs, suspect possible viral aseptic meningitis, continue antibiotics for now while waiting on gram stain/ CSF culture; viral PCRs including West Nile Virus, HSV and enterovirus pending -Consider meningoencephalitis related to trimethoprim-sulfamethoxazole which could also cause hepatitis and thrombocytopenia, was treated with outpatient course recently and he associates with his illness- will hold trimethoprim- sulfamethoxazole for now as low suspicion for listeria meningitis -Consider meningoencephalitis due to tick-borne illness- tick panel pending. Lyme covered with ceftriaxone, but RMSF while lower on list (no rash even though 4-5 days into illness) could cause nearly all of his lab abnormalities and symptoms, so will treat with doxycycline for now 3. Hyponatremia- hypovolemia vs SIADH -Minimal improvement with IVF -Check urine osmolality, serum osmolality and urine sodium for further evaluation of etiology 4. Thrombocytopenia- marked with plt 55 on admission -No historic values available, unclear if infection related or liver dysfunction or medication -2 units platelets given prior to LP due to bleeding risk, monitor counts -Will avoid ibuprofen use for fever 5. Transaminitis/hyperbilirubinemia- suspect due to viral infection, gall bladder US with sludge but would not expect significant lab abnormalities -Hepatitis panel pending -Will minimize acetaminophen use for fever 6. DMII with hyperglycemia and foot ulcer -Resume home metformin, diabetic diet, sliding scale insulin -Wound care consult DVT ppx- SCDs, hold pharmacologic ppx for now, recheck platelets in the am Diagnosis/Problems: Clinical Quality Measures DVT/VTE Risk/Contraindication: Risk Factor Score Per Nursin RFS Level Per Nursing on Admit: 3=High Copy Copies To 1: UZIEL PHILLIPS MD, BETHANY N MD Mar 30, 2017 9:56 pm
[2017-03-31] VITALS (7 sets, daily range): BP systolic 113–148; BP diastolic 60–72
[2017-03-31] MEDS: DOXYCYCLINE INJECTION 100 MG in NS (IVPB) 100 ML IV SCH ×3 (00:02→20:32)
[2017-03-31] MEDS: DEXAMETHASONE 4 MG/ML SDV (DECADRON) IV SCH ×4 (01:17→17:33)
[2017-03-31] MEDS: cefTRIAXone INJECTION 2,000 MG in NS (IVPB) 50 ML IV SCH ×2 (01:18→13:46)
[2017-03-31] MEDS ORDERED: VANCOMYCIN 500 MG/VIAL IV ONE (02:42)
[2017-03-31] MEDS ORDERED: VANCOMYCIN 750 MG/VIAL IV ONE (02:42)
[2017-03-31] MEDS ORDERED: NS (IVPB) 250 ML ONE (02:43)
[2017-03-31] MEDS: VANCOMYCIN 1250 MG/NS 250 ML IVPB IV SCH ×4 (03:14→14:20)
[2017-03-31] MEDS ORDERED: ACETAMINOPHEN 500 MG TAB (TYLENOL) PO ONE (04:15)
[2017-03-31 06:33] LABS: BASOPHILS % (AUTO) 1 % (0-10); EOSINOPHILS % (AUTO) 1 % (0-10); LYMPHOCYTES # (AUTO) 1.2 X 10^3 (1.0-4.0); LYMPHOCYTES % (AUTO) 19 % (12-44); MEAN CORPUSCULAR HEMOGLOBIN 31 PG (25-34); MEAN CORPUSCULAR HGB CONC 37 G/DL (32-36); MEAN CORPUSCULAR VOLUME 83 FL (80-99); MEAN PLATELET VOLUME 12.9 FL (7.4-10.4); MONOCYTES # (AUTO) 0.5 X 10^3 (0.0-1.0); MONOCYTES % (AUTO) 8 % (0-12); NEUTROPHILS # (AUTO) 4.5 X 10^3 (1.8-7.8); NEUTROPHILS % (AUTO) 72 % (42-75); PLATELET COUNT 59 10^3/uL (130-400); RED BLOOD COUNT 3.98 10^6/uL (4.35-5.85); RED CELL DISTRIBUTION WIDTH 12.6 % (10.0-14.5); WHITE BLOOD COUNT 6.3 10^3/uL (4.3-11.0)
[2017-03-31 06:37] LABS: ALANINE AMINOTRANSFERASE 100 U/L (0-55); ANION GAP 9 MMOL/L (5-14); ASPARTATE AMINO TRANSFERASE 140 U/L (5-34); BILIRUBIN,TOTAL 0.9 MG/DL (0.1-1.0); BLOOD UREA NITROGEN 24 MG/DL (7-18); BUN/CREATININE RATIO 22; CALCIUM 7.8 MG/DL (8.5-10.1); CARBON DIOXIDE 18 MMOL/L (21-32); CHLORIDE 99 MMOL/L (98-107); GFR ESTIMATED > 60; GLUCOSE 317 MG/DL (70-105); POTASSIUM 4.7 MMOL/L (3.6-5.0); SODIUM 126 MMOL/L (135-145)
[2017-03-31] MEDS: NS IV 1000 ML 1,000 ML IV SCH ×4 (07:51→20:32)
[2017-03-31] MEDS: inSUlin (REGULAR) HUMAN 1 UNIT/0.01 ML (CHARGE PER UNIT) SC SCH ×4 (07:53→22:53)
[2017-03-31 08:12] LABS: TULAREMIA ANTIBODY <1:20
[2017-03-31] MEDS: metFORMIN 500 MG (GLUCOPHAGE) TAB PO SCH ×2 (10:11→17:32)
[2017-03-31] MEDS: GLIMEPIRIDE 4 MG (AMARYL) TAB PO SCH (10:11)
--- NOTE | 2017-03-31 10:54 | Progress Note (SOAP) ---
LUCINARODNEY Escamilla STUDENT 03/31/17 1054: Subjective Subjective/Events-last exam Patient presented to the emergency room last night with fever and confusion. He stated that his made him come in to see the doctor. His symptoms included nausea, headache, fever, and diarrhea along with his altered mental status. Symptoms began as flu-like symptoms and a cough on Tuesday evening but have progressively worsened and confusion began soon before coming to the ER. Patient has not had these symptoms before. [place] he did have to remove a tick about a week ago, but he usually notices them before 24 hours. He denies a rash of any sort, including a bulls-eye rash. He also denies mosquito bites. Past medical history includes diabetes mellitus type II and HTN. CSF was drawn to identify meningitis. Results showed no bacteria but an elevated WBC count. Labs were drawn and antibodies toward tick-borne illnesses are being assessed. Due to abnormal liver function tests, acetaminophen was not given for fever, and due to low platelet counts, ibuprofen was not given to decrease fever. Ice packs were used intermittently to control the fever. Today, the patient was alert and oriented. He has not had any more confusion upon entering the hospital. His appetite was good last night. Throughout the night, the patient experienced intermittent fevers. His temperature ranged from 100.1 to 102.4 at 4:58am when acetaminophen was given. A slight increase in liver function tests most likely due to the acetaminophen was noted this morning. Patient no longer had a fever this morning. He was in good spirits and was understanding the situation that brought him into the hospital. He mentioned being cold all night but had no other complaints this morning. He had not had diarrhea since entering the hospital. He also said that his head felt better, except when he coughs, he notes a slight headache. Patient also had numerous scabs on his shins bilaterally and a bandage over a diabetic ulcer on his first digit on his right lower extremity. Review of Systems Date Seen by Provider: Mar 31, 2017 Time Seen by Provider: 10:00 General: Night Sweats (Fever intermitantly throughout the night treated with ice packs and acetaminophen at 5am.), Malaise (General malaise over the past few days) HEENT: Head Aches (Slight headache with coughing) Pulmonary: Cough (slight cough) Musculoskeletal: foot pain (Diabetic ulcer on right first digit) Objective Exam Last Set of Vital Signs Vital Signs Date Time Temp Pulse Resp B/P (MAP) Pulse Ox O2 Delivery O2 Flow Rate FiO2 03/31/17 07:33 99.3 79 18 113/62 95 Room Air Capillary Refill : Less Than 3 Seconds I&O Intake and Output 03/31/17 00:00 Intake Total 5065 ml Output Total 1600 ml Balance 3465 ml General: Alert, Oriented X3, Cooperative, No Acute Distress Lungs: Clear to Auscultation Heart: Regular Rate Abdomen: No Tenderness (Negative Parish's sign) Extremities: Other (Diabtic ulcer on right lower extremity first digit) Skin: No Significant Lesion (Diabetic ulcer on right lower extremity first digit) Results/Procedures Lab Laboratory Tests Test 03/30/17 09:53 03/30/17 10:05 03/30/17 10:55 03/30/17 12:10 Range/Units Glucometer 307 H 70-110 MG/DL White Blood Count 4.7 4.3-11.0 10^3/uL Red Blood Count 4.52 4.35-5.85 10^6/uL Hemoglobin 13.7 13.3-17.7 G/DL Hematocrit 37 L 40-54 % Mean Corpuscular Volume 83 80-99 FL Mean Corpuscular Hemoglobin 30 25-34 PG Mean Corpuscular Hemoglobin Concent 37 H 32-36 G/DL Red Cell Distribution Width 12.6 10.0-14.5 % Platelet Count 55 L 130-400 10^3/uL Mean Platelet Volume 12.2 H 7.4-10.4 FL Neutrophils (%) (Auto) 72 42-75 % Lymphocytes (%) (Auto) 16 12-44 % Monocytes (%) (Auto) 11 0-12 % Eosinophils (%) (Auto) 0 0-10 % Basophils (%) (Auto) 1 0-10 % Neutrophils # (Auto) 3.4 1.8-7.8 X 10^3 Lymphocytes # (Auto) 0.8 L 1.0-4.0 X 10^3 Monocytes # (Auto) 0.5 0.0-1.0 X 10^3 Eosinophils # (Auto) 0.0 0.0-0.3 10^3/uL Basophils # (Auto) 0.1 0.0-0.1 10^3/uL Prothrombin Time 14.5 12.2-14.7 SEC INR Comment 1.2 0.8-1.4 Activated Partial Thromboplast Time 31 24-35 SEC Sodium Level 126 L 135-145 MMOL/L Potassium Level 5.0 3.6-5.0 MMOL/L Chloride Level 94 L 98-107 MMOL/L Carbon Dioxide Level 22 21-32 MMOL/L Anion Gap 10 5-14 MMOL/L Blood Urea Nitrogen 26 H 7-18 MG/DL Creatinine 1.26 0.60-1.30 MG/DL Estimat Glomerular Filtration Rate 58 BUN/Creatinine Ratio 21 Glucose Level 313 H 70-105 MG/DL Lactic Acid Level 2.09 *H 2.55 *H 0.50-2.00 MMOL/L Calcium Level 8.5 8.5-10.1 MG/DL Magnesium Level 1.7 L 1.8-2.4 MG/DL Total Bilirubin 1.9 H 0.1-1.0 MG/DL Aspartate Amino Transf (AST/SGOT) 106 H 5-34 U/L Alanine Aminotransferase (ALT/SGPT) 74 H 0-55 U/L Alkaline Phosphatase 86 40-136 U/L Total Protein 6.9 6.4-8.2 GM/DL Albumin 3.7 3.2-4.5 GM/DL Lyme Disease Screen IgG & IgM Ab 0.00 0.00-0.89 Index Lyme Antibody Interpretation Footnote Negative Hepatitis A IgM Antibody Non-Reactive Non-Reactive Hepatitis B Surface Antigen Non-Reactive Non-Reactive Hepatitis B Core IgM Antibody Non-Reactive Non-Reactive Hepatitis C Antibody Non-Reactive Non-Reactive [place] Antibody <1:20 Urine Color CHERELLE H Urine Clarity CLEAR Urine pH 5 5-9 Urine Specific [place] 1.020 1.016-1.022 Urine Protein 3+ H NEGATIVE Urine Glucose (UA) 4+ H NEGATIVE Urine Ketones 3+ H NEGATIVE Urine Nitrite NEGATIVE NEGATIVE Urine Bilirubin 1+ H NEGATIVE Urine Urobilinogen 4 H NORMAL MG/DL Urine Leukocyte Esterase NEGATIVE NEGATIVE Urine RBC (Auto) 2+ H NEGATIVE Urine RBC RARE /HPF Urine WBC RARE /HPF Urine Squamous Epithelial Cells RARE /HPF Urine Crystals NONE /LPF Urine Bacteria NEGATIVE /HPF Urine Casts NONE /LPF Urine Mucus SMALL H /LPF Urine Culture Indicated NO Urine Random Sodium 59 50-200 MMOL/L Test 03/30/17 14:45 03/30/17 14:59 03/30/17 16:45 03/30/17 17:20 Range/Units Lactic Acid Level 1.33 0.50-2.00 MMOL/L Glucometer 245 H 70-110 MG/DL Sodium Level 127 L 135-145 MMOL/L Potassium Level 5.0 3.6-5.0 MMOL/L Chloride Level 100 98-107 MMOL/L Carbon Dioxide Level 21 21-32 MMOL/L Anion Gap 6 5-14 MMOL/L Blood Urea Nitrogen 26 H 7-18 MG/DL Creatinine 1.04 0.60-1.30 MG/DL Estimat Glomerular Filtration Rate > 60 BUN/Creatinine Ratio 25 Glucose Level 266 H 70-105 MG/DL Calcium Level 7.6 L 8.5-10.1 MG/DL Total Bilirubin 1.1 H 0.1-1.0 MG/DL Aspartate Amino Transf (AST/SGOT) 101 H 5-34 U/L Alanine Aminotransferase (ALT/SGPT) 65 H 0-55 U/L Alkaline Phosphatase 73 40-136 U/L Total Protein 6.0 L 6.4-8.2 GM/DL Albumin 3.1 L 3.2-4.5 GM/DL Thyroid Stimulating Hormone (TSH) 0.33 L 0.35-4.94 UIU/ML Free Thyroxine 0.83 0.70-1.48 NG/DL Test 03/30/17 18:23 03/30/17 20:56 03/31/17 05:26 03/31/17 05:27 Range/Units CSF Tube Number 4 CSF Appearance CLEAR CSF Color COLORLESS CSF WBC 11 H 0-5 CELLS CSF RBC 0 0-0 CELLS CSF Lymphocytes 32 % CSF Mononuclear WBCs 68 % CSF Polynuclear WBCs 0 % CSF Glucose 143 H 50-80 MG/DL CSF Total Protein 74 H 15-40 MG/DL Glucometer 371 H 324 H 70-110 MG/DL White Blood Count 6.3 4.3-11.0 10^3/uL Red Blood Count 3.98 L 4.35-5.85 10^6/uL Hemoglobin 12.2 L 13.3-17.7 G/DL Hematocrit 33 L 40-54 % Mean Corpuscular Volume 83 80-99 FL Mean Corpuscular Hemoglobin 31 25-34 PG Mean Corpuscular Hemoglobin Concent 37 H 32-36 G/DL Red Cell Distribution Width 12.6 10.0-14.5 % Platelet Count 59 L 130-400 10^3/uL Mean Platelet Volume 12.9 H 7.4-10.4 FL Neutrophils (%) (Auto) 72 42-75 % Lymphocytes (%) (Auto) 19 12-44 % Monocytes (%) (Auto) 8 0-12 % Eosinophils (%) (Auto) 1 0-10 % Basophils (%) (Auto) 1 0-10 % Neutrophils # (Auto) 4.5 1.8-7.8 X 10^3 Lymphocytes # (Auto) 1.2 1.0-4.0 X 10^3 Monocytes # (Auto) 0.5 0.0-1.0 X 10^3 Eosinophils # (Auto) 0.0 0.0-0.3 10^3/uL Basophils # (Auto) 0.0 0.0-0.1 10^3/uL Sodium Level 126 L 135-145 MMOL/L Potassium Level 4.7 3.6-5.0 MMOL/L Chloride Level 99 98-107 MMOL/L Carbon Dioxide Level 18 L 21-32 MMOL/L Anion Gap 9 5-14 MMOL/L Blood Urea Nitrogen 24 H 7-18 MG/DL Creatinine 1.10 0.60-1.30 MG/DL Estimat Glomerular Filtration Rate > 60 BUN/Creatinine Ratio 22 Glucose Level 317 H 70-105 MG/DL Calcium Level 7.8 L 8.5-10.1 MG/DL Total Bilirubin 0.9 0.1-1.0 MG/DL Aspartate Amino Transf (AST/SGOT) 140 H 5-34 U/L Alanine Aminotransferase (ALT/SGPT) 100 H 0-55 U/L Alkaline Phosphatase 75 40-136 U/L Total Protein 6.0 L 6.4-8.2 GM/DL Albumin 3.0 L 3.2-4.5 GM/DL Significant labs included: Thrombocytopenia, hyponatremia, hypocalcemia, elevated BUN, elevated liver function tests, and elevated blood glucose levels. Urinalysis showed: [place] colored urine with 3+ protein, 4+ glucose, 3+ ketones, 1+ bilirubin, 4 urobilinogen, and RBCs present. CSF analysis showed: Elevated WBC and slight elevations in glucose and protein. Lyme antibodies were negative at 0.00 IgG and IgM Hepatitis tests resulted negative [place], Chaffeensis antibodies, and Spotted fever antibodies and pending results. Radiology 03/30 Gall bladder US: IMPRESSION: 1. There is gallbladder sludge and a 4 mm gallbladder polyp seen. 2. Mild hepatomegaly with hyperechoic parenchyma, presumably related to fatty infiltration. 03/30 CXR: Unremarkable 03/[address]: Unremarkable Assessment/Plan Assessment/Plan Admission Dx 03/30 1. Suspected sepsis 2. Altered mental status 3. Hyponatremia 4. Thrombocytopenia 5. Transaminitis/hyperbilirubinemia 6. DMII 03/31 1. Suspected viral meningitis 2. Suspected [place] Spotted Fever 3. Hyponatremia 4. Thrombocytopenia 5. DMII 6. Diabetic foot ulcer 7. Fatty liver disease Plan 03/30 1. Suspected severe sepsis- on admission not clear, but at 1330 received notification of fever- febrile, tachycardic, elevated lactic acid -Source unclear- UA unremarkable, CXR unremarkable, possible meningoencephalitis or non-specific viral infection -Antibiotics targed to bacterial meningitis while obtaining labs/LP results- initially started on vancomycin, ceftriaxone and trimethoprim-sulfamethoxazole ( allergy to pencillin) and dexamethasone -Repeat lactic acid normal after IVF 2. Altered mental status- CT head normal -Due to hyponatremia/dehydration/fatigue vs FOOT ORTHOPEDIST infection/meningoencephalitis -LP done with very slightly elevated WBC, no PMNs, suspect possible viral aseptic meningitis, continue antibiotics for now while waiting on gram stain/ CSF culture; viral PCRs including West Nile Virus, HSV and enterovirus pending -Consider meningoencephalitis related to trimethoprim-sulfamethoxazole which could also cause hepatitis and thrombocytopenia, was treated with outpatient course recently and he associates with his illness- will hold trimethoprim- sulfamethoxazole for now as low suspicion for listeria meningitis -Consider meningoencephalitis due to tick-borne illness- tick panel pending. Lyme covered with ceftriaxone, but RMSF while lower on list (no rash even though 4-5 days into illness) could cause nearly all of his lab abnormalities and symptoms, so will treat with doxycycline for now 3. Hyponatremia- hypovolemia vs SIADH -Minimal improvement with IVF -Check urine osmolality, serum osmolality and urine sodium for further evaluation of etiology 4. Thrombocytopenia- marked with plt 55 on admission -No historic values available, unclear if infection related or liver dysfunction or medication -2 units platelets given prior to LP due to bleeding risk, monitor counts -Will avoid ibuprofen use for fever 5. Transaminitis/hyperbilirubinemia- suspect due to viral infection, gall bladder US with sludge but would not expect significant lab abnormalities -Hepatitis panel pending -Will minimize acetaminophen use for fever 6. DMII with hyperglycemia and foot ulcer -Resume home metformin, diabetic diet, sliding scale insulin -Wound care consult DVT ppx- SCDs, hold pharmacologic ppx for now, recheck platelets in the am 03/31 1. Suspected viral meningitis--CSF negative for bacteria but contained high WBC. Continue antibiotics (vancomycin, ceftriaxone and trimethoprim- sulfamethoxazole and dexamethasone) until CSF and blood cultures are determined to be negative. Source and specific virus unclear. Suspect an enterovirus or a herpesvirus. Viral PCRs including West Nile Virus, HSV and enterovirus pending. 2. Suspected [place] Spotted Fever--Continue doxycycline for tick-borne illnesses until results are reported back from the lab. 3. Hyponatremia-- Analyze urine osmolality and urine sodium to identify if caused by hypovolemia 4. Thrombocytopenia-- plt 59 No historic values available Avoid ibuprofen for fever reduction 5. DMII--Resume home metformin, diabetic diet, sliding scale insulin 6. Diabetic foot ulcer--Wound was redressed with an absorbant dressing Diagnosis/Problems: Clinical Quality Measures DVT/VTE Risk/Contraindication: Risk Factor Score Per Nursin RFS Level Per Nursing on Admit: 3=High SAIDA BEYER MD 03/31/17 2001: Supervisory-Addendum Brief Supervisory Addendum Patient seen and examined with MS3, Rodney Headley, agree with documentation unless otherwise noted. Patient not on trimethoprim- sulfamethoxazole- d/c'd 7 pm. Will likely d/c antibiotics when blood culture and CSF culture negative x 48 hours or if viral PCR positive result noted. Low suspicion for bacterial meningoencephalitis given slight WBC elevation, slight protein elevation and CSF to serum glucose ratio of > 0.4, but bacterial not ruled out with these values either. RODNEY VERDUGO STUDENT Mar 31, 2017 10:54 SAIDA BEYER MD Mar 31, 2017 20:01
[2017-03-31] MEDS ORDERED: TROUGH ORDER-PHARMACY XX NR (13:00)
[2017-03-31] MEDS: VANCOMYCIN INJECTION 1,500 MG in NS IV 500 ML 500 ML IV SCH (15:04)
[2017-03-31 15:51] LABS: IGG ROCKY MOUNTAIN SPOTTED FEV <1:16 (<1:16); IGM ROCKY MOUNTAIN SPOTTED FEV <1:10 (<1:10)
[2017-03-31] MEDS: POVIDONE (BETADINE) 10% SOLN 240 ML BTL TOP SCH (20:36)
[2017-04-01] MEDS: DEXAMETHASONE 4 MG/ML SDV (DECADRON) IV SCH ×2 (00:12→05:28)
[2017-04-01] MEDS: cefTRIAXone INJECTION 2,000 MG in NS (IVPB) 50 ML IV SCH (02:04)
[2017-04-01] MEDS: VANCOMYCIN INJECTION 1,500 MG in NS IV 500 ML 500 ML IV SCH (02:39)
[2017-04-01 03:40] VITALS: BP 130/64
[2017-04-01] MEDS: inSUlin (REGULAR) HUMAN 1 UNIT/0.01 ML (CHARGE PER UNIT) SC SCH ×3 (05:28→20:09)
[2017-04-01 05:44] LABS: MEAN PLATELET VOLUME 12.7 FL (7.4-10.4); RED BLOOD COUNT 3.87 10^6/uL (4.35-5.85); RED CELL DISTRIBUTION WIDTH 12.9 % (10.0-14.5); WHITE BLOOD COUNT 8.3 10^3/uL (4.3-11.0)
[2017-04-01] MEDS: NS IV 1000 ML 1,000 ML IV SCH ×3 (05:45→20:06)
[2017-04-01] MEDS: metFORMIN 500 MG (GLUCOPHAGE) TAB PO SCH ×2 (06:02→17:36)
[2017-04-01] MEDS: GLIMEPIRIDE 4 MG (AMARYL) TAB PO SCH (06:02)
[2017-04-01 06:09] LABS: ALANINE AMINOTRANSFERASE 85 U/L (0-55); ALBUMIN 2.8 GM/DL (3.2-4.5); ANION GAP 9 MMOL/L (5-14); ASPARTATE AMINO TRANSFERASE 103 U/L (5-34); BILIRUBIN,TOTAL 0.6 MG/DL (0.1-1.0); BLOOD UREA NITROGEN 32 MG/DL (7-18); BUN/CREATININE RATIO 34; CALCIUM 7.8 MG/DL (8.5-10.1); CARBON DIOXIDE 16 MMOL/L (21-32); CHLORIDE 105 MMOL/L (98-107); CREATININE SERUM 0.93 MG/DL (0.60-1.30); GFR ESTIMATED > 60; GLUCOSE 308 MG/DL (70-105); POTASSIUM 5.1 MMOL/L (3.6-5.0); SODIUM 130 MMOL/L (135-145); TOTAL PROTEIN 5.6 GM/DL (6.4-8.2)
[2017-04-01 07:58] LABS: OSMOLALITY URINE PT 925 mOsm/kg (250-1200)
[2017-04-01 08:00] VITALS: BP 127/66
[2017-04-01] MEDS: lisINopril 10 MG (PRINIVIL) TAB PO SCH (08:32)
[2017-04-01] MEDS: DOXYCYCLINE INJECTION 100 MG in NS (IVPB) 100 ML IV SCH ×2 (08:32→21:22)
[2017-04-01] MEDS: POVIDONE (BETADINE) 10% SOLN 240 ML BTL TOP SCH ×2 (08:33→21:23)
--- NOTE | 2017-04-01 11:36 | Progress Note (SOAP) ---
RODNEY JOHN STUDENT 04/01/17 11:36am: Subjective Subjective/Events-last exam On 03/31 10:45am patient complained of headache with coughing and was given Oxycodone HCl 5mg. No fever during the night. Patient was given Oxycodone HCl 5mg at 06:02am for head pain with coughing. Patient was feeling much better today, 04/01. He slept well in the night and did not have a fever in the last 24 hours. Patient was anxious to return home. Mental status and mood were normal. No confusion, mental status changes, or abdominal pain/nausea/diarrhea in the past 24 hours. Review of Systems Date Seen by Provider: Apr 01, 2017 Time Seen by Provider: 10:30 HEENT: Head Aches (Oxycodone HCl given twice for headaches) Pulmonary: Cough Objective Exam Last Set of Vital Signs Vital Signs Date Time Temp Pulse Resp B/P (MAP) Pulse Ox O2 Delivery O2 Flow Rate FiO2 04/01/17 08:00 97.4 77 20 127/66 96 Room Air Capillary Refill : Less Than 3 Seconds I&O Intake and Output 04/01/17 00:00 Intake Total 5885 ml Output Total 2920 ml Balance 2965 ml Intake Oral 2720 ml IV Total 3165 ml Output Urine Total 2920 ml # Bowel Movements 2 General: Alert, Oriented X3, Cooperative, No Acute Distress Lungs: Clear to Auscultation, Normal Air Movement Heart: Regular Rate, Normal S1, Normal S2 Neuro: Normal Speech Psych/Mental Status: Mental Status NL Results/Procedures Lab Laboratory Tests 03/31/17 11:46: Glucometer 367H 03/31/17 13:10: Vancomycin Level Trough 8.0L 03/31/17 14:07: Lab Scanned Report Transfusion Reaction Form 03/31/17 17:25: Glucometer 299H 03/31/17 22:41: Glucometer 311H 04/01/17 05:05: White Blood Count 8.3, Red Blood Count 3.87L, Hemoglobin 11.7L, Hematocrit 33L, Mean Corpuscular Volume 85, Mean Corpuscular Hemoglobin 30, Mean Corpuscular Hemoglobin Concent 36, Red Cell Distribution Width 12.9, Platelet Count 76L, Mean Platelet Volume 12.7H, Sodium Level 130L, Potassium Level 5.1H, Chloride Level 105, Carbon Dioxide Level 16L, Anion Gap 9, Blood Urea Nitrogen 32H, Creatinine 0.93, Estimat Glomerular Filtration Rate > 60, BUN/Creatinine Ratio 34, Glucose Level 308H, Calcium Level 7.8L, Total Bilirubin 0.6, Aspartate Amino Transf (AST/SGOT) 103H, Alanine Aminotransferase (ALT/SGPT) 85H, Alkaline Phosphatase 68, Total Protein 5.6L, Albumin 2.8L 04/01/17 05:18: Glucometer 278H Microbiology 03/30/17 Blood Culture - Preliminary, Resulted No growth 03/30/17 Gram Stain - Final, Resulted 03/30/17 CSF Culture - Preliminary, Resulted No growth Urinalysis Osmolality from 03/30/17 @ 16:45: 925 Pending results for CSF viral PCR Pending results for E. Chaffeensis antibodies Radiology 03/30 Gall bladder US: IMPRESSION: 1. There is gallbladder sludge and a 4 mm gallbladder polyp seen. 2. Mild hepatomegaly with hyperechoic parenchyma, presumably related to fatty infiltration. 03/30 CXR: Unremarkable 03/[address]: Unremarkable Assessment/Plan Assessment/Plan Admission Dx 03/30 1. Suspected sepsis 2. Altered mental status 3. Hyponatremia 4. Thrombocytopenia 5. Transaminitis/hyperbilirubinemia 6. DMII 03/31 1. Suspected viral meningitis 2. Suspected [place] Spotted Fever 3. Hyponatremia 4. Thrombocytopenia 5. DMII 6. Diabetic foot ulcer 04/01 1. Suspected viral meningitis 2. Thrombocytopenia 3. DMII Plan 03/30-04/01 1. Suspected severe sepsis- on admission not clear, but at 1330 received notification of fever- febrile, tachycardic, elevated lactic acid -Source unclear- UA unremarkable, CXR unremarkable, possible meningoencephalitis or non-specific viral infection -Antibiotics targed to bacterial meningitis while obtaining labs/LP results- initially started on vancomycin, ceftriaxone and trimethoprim-sulfamethoxazole ( allergy to pencillin) and dexamethasone -Repeat lactic acid normal after IVF 03/31 No longer suspected 2. 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 -LP done with very slightly elevated WBC, no PMNs, suspect possible viral aseptic meningitis, continue antibiotics for now while waiting on gram stain/ CSF culture; viral PCRs including West Nile Virus, HSV and enterovirus pending -Consider meningoencephalitis related to trimethoprim-sulfamethoxazole which could also cause hepatitis and thrombocytopenia, was treated with outpatient course recently and he associates with his illness- will hold trimethoprim- sulfamethoxazole for now as low suspicion for listeria meningitis -Consider meningoencephalitis due to tick-borne illness- tick panel pending. Lyme covered with ceftriaxone, but RMSF while lower on list (no rash even though 4-5 days into illness) could cause nearly all of his lab abnormalities and symptoms, so will treat with doxycycline for now 03/31 Suspected viral meningitis 04/01 Suspected viral meningitis -D/C antibiotics for bacterial meningitis. Watch for 24 hours to determine how patient does without them. Continue doxycycline for tick-borne illnesses. -PCR pending analysis of CSF for enterovirus, HSV, and West Nile Virus -Consider aseptic meningitis related to trimethoprim-sulfamethoxazole which could also cause hepatitis and thrombocytopenia, was treated with outpatient course recently and he associates with his illness -Pending results on E. chaffeensis antibodies. Considering tick-borne meningoencephalitis. Continue doxycycline for now. 3. Hyponatremia- hypovolemia vs SIADH -Minimal improvement with IVF -Check urine osmolality, serum osmolality and urine sodium for further evaluation of etiology 04/01 Urine osmolality and sodium (925 and 51, respectively) results suggest SIADH due to DESIGN PRINTING MACHINE SET UP OPERATOR issue. 4. Thrombocytopenia- marked with plt 55 on admission -No historic values available, unclear if infection related or liver dysfunction or medication -2 units platelets given prior to LP due to bleeding risk, monitor counts -Will avoid ibuprofen use for fever 03/31 Thrombocytopenia at 59 7/ Thrombocytopenia at 76 -Platelet count is gradually increasing. Continue avoidance of ibuprofen use for fever 5. Transaminitis/hyperbilirubinemia- suspect due to viral infection, gall bladder US with sludge but would not expect significant lab abnormalities -Hepatitis panel pending -Will minimize acetaminophen use for fever 04/01 Transaminitis-suspect due to viral infection -negative Hepatitis panel -Continue to monitor levels to see a decline over 24 hours 6. DMII with hyperglycemia and foot ulcer -Resume home metformin, diabetic diet, sliding scale insulin -Wound care consult 03/31 Dressed with dry wound bandage. 04/01 DMII with hyperglycemia -Continue diabetic care and wound care DVT ppx- SCDs, hold pharmacologic ppx for now, recheck platelets in the am Diagnosis/Problems: Clinical Quality Measures DVT/VTE Risk/Contraindication: Risk Factor Score Per Nursin RFS Level Per Nursing on Admit: 3=High SAIDA BEYER MD 04/01/17 3:01pm: Supervisory-Addendum Brief Supervisory Addendum Patient seen and examined with MS3 Rodney John, agree with documentation unless otherwise noted. Alert and oriented x 4, speech clear and normal, family reports he is essentially at baseline per their evaluation. Hyponatremia resolved, hyperbilirubinemia resolved, LFTs trending down, platelets trending up. CSF PCR pending, still unclear whether viral vs drug induced (Bactrim) vs tick borne meningoencephalitis, although HSV not highly suspected given his relatively benign clinical course, marked improvement with essential resolution of symptoms without treatment and other lab abnormalities suggestive of tick borne or drug induced reaction. He also denies any history of oral or genital herpes. RMSF and Lyme negative IgM and IgG titers. E chaffeensis pending. Prelim CSF and blood cultures negative, afebrile x 24 hours , will d/c rocephin, vanc and dexamethasone and monitor closely. Blood sugar poorly controlled, will increase metformin to BID. If still improved tomorrow, anticipate possible d/c. RODNEY JOHN STUDENT Apr 01, 2017 11:36 am SAIDA BEYER MD Apr 01, 2017 3:01 pm
[2017-04-01 12:00] VITALS: BP 113/59
[2017-04-01] MEDS ORDERED: TROUGH ORDER-PHARMACY XX NR (13:30)
[2017-04-01 13:42] LABS: HSV 2 DNA PCR CSF Not Detected (Not Detected)
[2017-04-01 16:00] VITALS: BP 107/58
[2017-04-01 16:37] LABS: HSV 1 DNA PCR Not Detected (Not Detected)
[2017-04-01] MEDS ORDERED: POLYETHYLENE GLYCOL 17 GM (MIRALAX) PACK PO PRN (17:45)
--- NOTE | 2017-04-01 18:12 | Wound Care Progress Note ---
Subjective Subjective Subjective/Events-last exam Patient is a 61-year-old gentleman admitted with suspected sepsis and undergoing workup for same, noted to have diabetic foot ulcer of the right first metatarsal head. This has been present for approximately 3 weeks, drained and he was placed on Bactrim by Dr. Gutierrez. He has been taking metformin for his diabetes and a small blue pill, he does not know the name of. Does not check his blood sugars routinely. Blood sugars while here have been running 200- 300, reportedly after a period of fasting. He is urged strongly to begin to control his blood sugars, to avoid future amputation of the leg. He denies any current pain in the wound, and states that he has numbness in both his hands and feet. PMH: Diabetes mellitus, poorly controlled, hypertension. Social History: Patient is currently employed and lives with his . Family history: Noncontributory. Review of Systems Date Seen by Provider: Apr 01, 2017 Time Seen by Provider: 18:00 General: No Chills, No Appetite HEENT: Head Aches, No Visual Changes Pulmonary: No Dyspnea Cardiovascular: No: Chest Pain Gastrointestinal: Diarrhea, No: Abdominal Pain, Nausea Genitourinary: No Dysuria Musculoskeletal: No: foot pain, leg pain Neurological: Confusion (On admission.), Incoordination Integumentary: Right foot lesion as noted in history of present illness. Endocrine: The patient has been noncompliant with the recommended management of his diabetes. The significant complications that will result if this continues, are discussed at length with the patient. Objective Exam Last Set of Vital Signs Vital Signs Date Time Temp Pulse Resp B/P (MAP) Pulse Ox O2 Delivery O2 Flow Rate FiO2 04/01/17 12:00 98.3 80 20 113/59 93 Room Air Capillary Refill : Less Than 3 Seconds I&O Intake and Output 04/01/17 00:00 Intake Total 5885 ml Output Total 2920 ml Balance 2965 ml Intake Oral 2720 ml IV Total 3165 ml Output Urine Total 2920 ml # Bowel Movements 2 General: Alert, Oriented X3, Cooperative, No Acute Distress HEENT: Atraumatic, PERRLA Neck: Supple, No Thyromegaly, +2 Carotid Pulse No Bruit Lungs: Clear to Auscultation, Normal Air Movement Heart: Regular Rate, No Murmurs, Other (Palpable pedal pulses.) Abdomen: Normal Bowel Sounds, Soft Extremities: No Clubbing, No Cyanosis, No Edema Skin: Other (R 1st MTH -- 2.1 x 1.8 x 0.2 cm, base 90% eschar, 10% slough, no drainage.) Neuro: Normal Speech Psych/Mental Status: Mental Status NL, Mood NL Results Lab Laboratory Tests 03/31/17 22:41: Glucometer 311H 04/01/17 05:05: White Blood Count 8.3, Red Blood Count 3.87L, Hemoglobin 11.7L, Hematocrit 33L, Mean Corpuscular Volume 85, Mean Corpuscular Hemoglobin 30, Mean Corpuscular Hemoglobin Concent 36, Red Cell Distribution Width 12.9, Platelet Count 76L, Mean Platelet Volume 12.7H, Sodium Level 130L, Potassium Level 5.1H, Chloride Level 105, Carbon Dioxide Level 16L, Anion Gap 9, Blood Urea Nitrogen 32H, Creatinine 0.93, Estimat Glomerular Filtration Rate > 60, BUN/Creatinine Ratio 34, Glucose Level 308H, Calcium Level 7.8L, Total Bilirubin 0.6, Aspartate Amino Transf (AST/SGOT) 103H, Alanine Aminotransferase (ALT/SGPT) 85H, Alkaline Phosphatase 68, Total Protein 5.6L, Albumin 2.8L 04/01/17 05:18: Glucometer 278H 04/01/17 12:25: Glucometer 329H Microbiology 03/30/17 Blood Culture - Preliminary, Resulted No growth 03/30/17 Gram Stain - Final, Resulted 03/30/17 CSF Culture - Preliminary, Resulted No growth Assessment/Plan Assessment/Plan Assessment/Plan 1. Diabetic foot ulcer, right first metatarsal head, grade 2. 2. Poorly controlled diabetes mellitus. 3. Suspected sepsis, etiology unknown. Plan: I discussed with the patient good glucose control, management of callus, and custom orthotic footwear, and he will follow-up in the outpatient clinic to pursue these goals. Simple dry dressing seems adequate at this time, as the eschar is intact. SADE PELAYO MD Apr 01, 2017 18:12
[2017-04-01 19:50] VITALS: BP 130/60
[2017-04-02] VITALS: BP 131/60
[2017-04-02] MEDS: NS IV 1000 ML 1,000 ML IV SCH (06:01)
[2017-04-02 06:11] LABS: MEAN PLATELET VOLUME 12.5 FL (7.4-10.4); RED BLOOD COUNT 3.97 10^6/uL (4.35-5.85); RED CELL DISTRIBUTION WIDTH 12.9 % (10.0-14.5); WHITE BLOOD COUNT 12.1 10^3/uL (4.3-11.0)
[2017-04-02 06:30] LABS: ALANINE AMINOTRANSFERASE 67 U/L (0-55); ALBUMIN 2.7 GM/DL (3.2-4.5); ANION GAP 7 MMOL/L (5-14); ASPARTATE AMINO TRANSFERASE 64 U/L (5-34); BILIRUBIN,TOTAL 0.4 MG/DL (0.1-1.0); BLOOD UREA NITROGEN 34 MG/DL (7-18); BUN/CREATININE RATIO 36; CALCIUM 7.9 MG/DL (8.5-10.1); CARBON DIOXIDE 18 MMOL/L (21-32); CHLORIDE 106 MMOL/L (98-107); CREATININE SERUM 0.95 MG/DL (0.60-1.30); GFR ESTIMATED > 60; GLUCOSE 207 MG/DL (70-105); POTASSIUM 4.6 MMOL/L (3.6-5.0); SODIUM 131 MMOL/L (135-145); TOTAL PROTEIN 5.3 GM/DL (6.4-8.2)
[2017-04-02 08:20] VITALS: BP 113/63
[2017-04-02] MEDS: DOXYCYCLINE INJECTION 100 MG in NS (IVPB) 100 ML IV SCH (09:09)
[2017-04-02] MEDS: metFORMIN 500 MG (GLUCOPHAGE) TAB PO SCH (09:10)
[2017-04-02] MEDS: GLIMEPIRIDE 4 MG (AMARYL) TAB PO SCH (09:10)
[2017-04-02] MEDS: inSUlin (REGULAR) HUMAN 1 UNIT/0.01 ML (CHARGE PER UNIT) SC SCH (09:10)
[2017-04-02] MEDS: POVIDONE (BETADINE) 10% SOLN 240 ML BTL TOP SCH (09:10)
[2017-04-02] MEDS: lisINopril 10 MG (PRINIVIL) TAB PO SCH (09:10)
[2017-04-02] MEDS ORDERED: DOXY100C2 PO (10:58)
--- NOTE | 2017-04-02 11:01 | Discharge Instructions ---
Discharge [facility] Discharge Medications New, Converted or Re-Newed RX: Transmitted to Pharmacy New Medications: Doxycycline Hyclate (Doxycycline Hyclate) 100 Mg Capsule 100 MG PO BID, #15 CAP 0 Refills Continued Medications: Atorvastatin Calcium (Atorvastatin Calcium) 40 Mg Tablet 40 MG PO HS Glimepiride (Glimepiride) 4 Mg Tablet 4 MG PO DAILY, TAB Lisinopril (Lisinopril) 10 Mg Tablet 10 MG PO DAILY, TAB Metformin HCl (Metformin HCl) 1,000 Mg Tablet 1000 MG PO BID, TAB Multivitamin (Multivitamins) 1 Each Tablet 1 TAB PO DAILY, TAB [place]-3/Dha/Epa/Fish Oil (Fish Oil 1,400 mg Softgel) 1 Each Capsule. 1400 MG PO BID, CAP Patient Instructions Goal/Follow Up Appt: Follow up on 04/07 at [address] Phillips Return to [facility] For: Fever, headache, confusion, rash Activity & Diet Discharge Diet: ADA Diet Activity as Tolerated: Yes Copy Copies To 1: BARBARA PHILLIPS MD, BETHANY N MD Apr 02, 2017 11:01 am
--- NOTE | 2017-04-02 11:01 | Discharge Summary ---
Diagnosis/Chief Complaint Date of Admission Mar 30, 2017 at 12:30 pm Date of Discharge April 02, 2017 Admission Diagnosis Admission Diagnosis 1. Suspected sepsis 2. Altered mental status 3. Hyponatremia 4. Thrombocytopenia 5. Transaminitis/hyperbilirubinemia 6. DMII Discharge Diagnosis 1. Suspected severe sepsis- on admission not clear, but at 1330 received notification of fever- febrile, tachycardic, elevated lactic acid -Source initially unclear- UA unremarkable, CXR unremarkable, possible meningoencephalitis or non-specific viral infection -Antibiotics targeted to bacterial meningitis while obtaining labs/LP results- initially started on vancomycin, ceftriaxone and trimethoprim-sulfamethoxazole ( allergy to pencillin) and dexamethasone -Repeat lactic acid normal after IVF 2. Altered mental status- Meningoencephalitis due to as yet unknown etiology -CT head normal -Due to hyponatremia/dehydration/fatigue vs [employer] infection/meningoencephalitis -LP done with very slightly elevated WBC, no PMNs, suspect possible viral aseptic meningitis, continue antibiotics for now while waiting on gram stain/ CSF culture; viral PCRs including West Nile Virus, HSV and enterovirus pending -Consider meningoencephalitis related to trimethoprim-sulfamethoxazole which could also cause hepatitis and thrombocytopenia, was treated with outpatient course recently and he associates with his illness- will hold trimethoprim- sulfamethoxazole for now as low suspicion for listeria meningitis -Consider meningoencephalitis due to tick-borne illness- tick panel pending. Lyme covered with ceftriaxone, but RMSF while lower on list (no rash even though 4-5 days into illness) could cause nearly all of his lab abnormalities and symptoms, so will treat with doxycycline for now -04/01 D/C antibiotics for bacterial meningitis. Watch for 24 hours to determine how patient does without them. Continue doxycycline for tick-borne illnesses. 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 HSV 1 and HSV 2 PCR from CSF neg, blood culture and CSF culture negative to date. Symptoms continued to improve, discussed remainder of CSF testing pending, but okay for discharge as clinically improved and no specific treatment for any of the pending results. If all results negative, would consider Bactrim as cause of his illness, although unable to be sure, would recommend avoidance of Bactrim in the future 3. Hyponatremia- hypovolemia vs SIADH -Minimal improvement with IVF -Check urine osmolality, serum osmolality and urine sodium for further evaluation of etiology 04/01 Urine osmolality and sodium (925 and 51, respectively) results suggest SIADH due to [employer] issue. -7/8 Resolved 4. Thrombocytopenia- marked with plt 55 on admission -No historic values available, unclear if infection related or liver dysfunction or medication -2 units platelets given prior to LP due to bleeding risk, monitor counts -Will avoid ibuprofen use for fever 7/6 Thrombocytopenia at 59 7/ Thrombocytopenia at 76 -Platelet count is gradually increasing. Continue avoidance of ibuprofen use for fever 7/8 Platelets not yet normal but significantly increased, recommend recheck outpatient to ensure resolution 5. Transaminitis/hyperbilirubinemia- suspect due to viral infection, gall bladder US with sludge but would not expect significant lab abnormalities -Hepatitis panel pending -Will minimize acetaminophen use for fever 04/01 Transaminitis-suspect due to viral infection 7- negative Hepatitis panel and continued improvement, not quite normal yet at d/c, recommend f/u outpatient to assure resolution- hold home statin until resolved 6. DMII with hyperglycemia and foot ulcer -Resume home metformin, diabetic diet, sliding scale insulin -Wound care consult 03/31 Dressed with dry wound bandage. 04/01 DMII with hyperglycemia -Continue diabetic care and wound care 04/02 - blood sugars high in spite of max dose of glimeperide and metformin, last A1c in clinic 9.02 January 2017, discussed with him that he needs to talk to his primary about additional treatment and he states he is going to be more aggressive about his diet management as well Chief Complaint/HPI Chief Complaint/HPI 61 yo male presented to ER after his essentially insisted that he come. He states that he started feeling sick on Tuesday, March 26. He thought he was getting a little better and tried to get up and do things Tuesday and then felt very poorly again. By "sick" he means he felt woozy, nauseated, mild headache, intermittent fever and had intermittent diarrhea. He was overall exhausted and weak and laid in bed for several days with minimal eating or drinking. Today, he felt he needed to go to work, so he asked his to take him and she thought he was using the bathroom, but when she looked for him, she found him outside naked wearing a disposable cup on his foot, looking for his car keys. He states he was worried he was going to be late and knows no one would be around so he was trying to find his keys so he wouldn't be late to work. He put the cup on his foot to protect an ulcer on his foot because he didn't have shoes handy. He minimizes this episode, but states he was definitely different than his normal self, seemed very slow to process and was making facial expressions that indicated confusion. She does note he is much better/ resolved now. [place] and he does have known tick exposure- usually checks skin every day so he doesn't think he would have a tick on for more than 24 hours. Last time he recalls removing a tick was a week ago today. He states that mosquitos rarely bite him and his is more prone to that. He was on Bactrim for his foot ulcer started on 03/18 for 10 day course. When he got sick, he stopped taking it for a bit and when he was feeling a little better he started it again and then felt worse again so he wonders if any of this could be medication related. He denies any rashes. He has taken ibuprofen and naproxen with this illness, but denies using acetaminophen. Discharge Summary-Simple/Stand Procedures Lumbar puncture Consultations Discharge Physical Examination Allergies: Coded Allergies: Penicillins (Verified Allergy, Unknown, 03/30/17) Vitals & I&Os Vital Sign - Last 12Hours Date Time Temp Pulse Resp B/P (MAP) Pulse Ox O2 Delivery O2 Flow Rate FiO2 04/02/17 08:20 97.6 74 18 113/63 96 Room Air Intake and Output 04/02/17 00:00 Intake Total 2440 ml Output Total 2550 ml Balance -110 ml General Appearance: Alert, Oriented X3 Neuro: Normal Speech Psych/Mental Status: Mental Status NL Hospital Course See final discharge diagnosis. Labs Laboratory Tests Test 03/31/17 17:25 03/31/17 22:41 04/01/17 05:05 04/01/17 05:18 Range/Units Glucometer 299 H 311 H 278 H 70-110 MG/DL White Blood Count 8.3 4.3-11.0 10^3/uL Red Blood Count 3.87 L 4.35-5.85 10^6/uL Hemoglobin 11.7 L 13.3-17.7 G/DL Hematocrit 33 L 40-54 % Mean Corpuscular Volume 85 80-99 FL Mean Corpuscular Hemoglobin 30 25-34 PG Mean Corpuscular Hemoglobin Concent 36 32-36 G/DL Red Cell Distribution Width 12.9 10.0-14.5 % Platelet Count 76 L 130-400 10^3/uL Mean Platelet Volume 12.7 H 7.4-10.4 FL Sodium Level 130 L 135-145 MMOL/L Potassium Level 5.1 H 3.6-5.0 MMOL/L Chloride Level 105 98-107 MMOL/L Carbon Dioxide Level 16 L 21-32 MMOL/L Anion Gap 9 5-14 MMOL/L Blood Urea Nitrogen 32 H 7-18 MG/DL Creatinine 0.93 0.60-1.30 MG/DL Estimat Glomerular Filtration Rate > 60 BUN/Creatinine Ratio 34 Glucose Level 308 H 70-105 MG/DL Calcium Level 7.8 L 8.5-10.1 MG/DL Total Bilirubin 0.6 0.1-1.0 MG/DL Aspartate Amino Transf (AST/SGOT) 103 H 5-34 U/L Alanine Aminotransferase (ALT/SGPT) 85 H 0-55 U/L Alkaline Phosphatase 68 40-136 U/L Total Protein 5.6 L 6.4-8.2 GM/DL Albumin 2.8 L 3.2-4.5 GM/DL Test 04/01/17 12:25 04/01/17 20:00 04/02/17 05:14 04/02/17 05:36 Range/Units Glucometer 329 H 300 H 189 H 70-110 MG/DL White Blood Count 12.1 H 4.3-11.0 10^3/uL Red Blood Count 3.97 L 4.35-5.85 10^6/uL Hemoglobin 11.8 L 13.3-17.7 G/DL Hematocrit 34 L 40-54 % Mean Corpuscular Volume 86 80-99 FL Mean Corpuscular Hemoglobin 30 25-34 PG Mean Corpuscular Hemoglobin Concent 35 32-36 G/DL Red Cell Distribution Width 12.9 10.0-14.5 % Platelet Count 108 L 130-400 10^3/uL Mean Platelet Volume 12.5 H 7.4-10.4 FL Sodium Level 131 L 135-145 MMOL/L Potassium Level 4.6 3.6-5.0 MMOL/L Chloride Level 106 98-107 MMOL/L Carbon Dioxide Level 18 L 21-32 MMOL/L Anion Gap 7 5-14 MMOL/L Blood Urea Nitrogen 34 H 7-18 MG/DL Creatinine 0.95 0.60-1.30 MG/DL Estimat Glomerular Filtration Rate > 60 BUN/Creatinine Ratio 36 Glucose Level 207 H 70-105 MG/DL Calcium Level 7.9 L 8.5-10.1 MG/DL Total Bilirubin 0.4 0.1-1.0 MG/DL Aspartate Amino Transf (AST/SGOT) 64 H 5-34 U/L Alanine Aminotransferase (ALT/SGPT) 67 H 0-55 U/L Alkaline Phosphatase 62 40-136 U/L Total Protein 5.3 L 6.4-8.2 GM/DL Albumin 2.7 L 3.2-4.5 GM/DL Test 04/02/17 11:02 Range/Units Glucometer 208 H 70-110 MG/DL Pending Labs CSF enterovirus PCR, West Nile IgG and IgM, CSF PEP Radiology Reviewed 03/30 Gall bladder US: IMPRESSION: 1. There is gallbladder sludge and a 4 mm gallbladder polyp seen. 2. Mild hepatomegaly with hyperechoic parenchyma, presumably related to fatty infiltration. 03/30 CXR: Unremarkable 03/[address]: Unremarkable Discharge Instructions to patient/family Please see electonic discharge instructions given to patient. Discharge Medications Reviewed and agree with Discharge Medication list on patient's Discharge Instruction sheet Clinical Quality Measures DVT/VTE Risk/Contraindication: Risk Factor Score Per Nursin RFS Level Per Nursing on Admit: 3=High Copy Copies To 1: BARBARA PHILLIPS MD, BETHANY N MD Apr 02, 2017 11:01 am
[2017-04-05 08:25] LABS: CSF ENTEROVIRUS RT-PCR Not Detected
== END 2017-04-02 13:35 | disposition home or self-care (01) | DRG 871 ==
LOC: ER 09:46 → 4TH 12:30
PROVIDERS: ADMIT Family Medicine; ATTEND Family Medicine
PROC: 009U3ZX Drainage of Spinal Canal, Percutaneous Approach, Diagnostic (ICD-10-PCS; principal; 2017-03-30)
DX: A41.9 Sepsis, unspecified organism (principal); A87.9 Viral meningitis, unspecified; G04.90 Encephalitis and encephalomyelitis, unspecified; A77.0 Spotted fever due to Rickettsia rickettsii; E87.1 Hypo-osmolality and hyponatremia; E86.0 Dehydration; D69.6 Thrombocytopenia, unspecified; E11.65 Type 2 diabetes mellitus with hyperglycemia; E11.621 Type 2 diabetes mellitus with foot ulcer; I10 Essential (primary) hypertension; K76.0 Fatty (change of) liver, not elsewhere classified
CPT/HCPCS: 36415; 70450; 71010; 76705; 80053; 80074; 80202; 81000; 82945; 82962; 83605; 83735; 83930; 83935; 84157; 84166; 84300; 84439; 84443; 85025; 85027; 85610; 85730; 86618; 86666; 86668; 86757; 86788; 86789; 86850; 86900; 86901; 87040; 87070; 87205; 87252; 87498; 87529; 89051; 96374

== ENCOUNTER → 2018-07-03 | Outpatient (CLI) | payer BC, OTHER ==
[~2018-07-03] MED LIST: ATOR40TA70 PO; DOXY100C2 PO; GLIM4TAB PO; LISI10TA2 PO; METF-399 PO; MULT1TAB69 PO; OMEG-9 PO
--- NOTE | 2018-07-03 11:16 | Diagnostic Imaging Report ---
PROCEDURE: MRI right lower extremity without contrast. TECHNIQUE: Multiplanar, multisequence non contrast-enhanced MRI of the right lower extremity was accomplished. INDICATION: Nonhealing sore of the right foot, medial side. COMPARISON: None. FINDINGS: There is extensive bone marrow edema throughout the first proximal phalangeal base and shaft, as well as the first metatarsal head and shaft. There is associated T1-weighted hypointensity, with cortical erosion at the proximal phalangeal base and first metatarsal head. There is a moderate heterogeneous joint effusion present. No acute fracture is seen. There appear to be advanced degenerative changes in the midfoot, which are not well seen on this exam. There is extensive soft tissue edema about the first metatarsophalangeal joint. No definite soft tissue fluid collection is seen, although this is suboptimally evaluated in the absence of contrast. There is moderate hallux valgus. There is fragmentation and loss of T1 signal of the hallux sesamoids, medial more than lateral. There is generalized muscular atrophy throughout the right foot. No significant tenosynovitis is appreciated. There is claw toe deformity of the second through fourth toes. A soft tissue defect is noted at the medial plantar aspect of the first metatarsal head extending towards the bone. IMPRESSION: 1. Osteomyelitis of the first metatarsal, first proximal phalanx, and hallux sesamoids in the right foot. Septic arthritis of the first metatarsophalangeal joint. 2. Marked soft tissue edema about the first metatarsophalangeal joint with small skin defect at the medial plantar aspect. No drainable fluid collections are seen on this noncontrast exam. 3. Partially seen marked degenerative changes in the midfoot. Dictated by: Dictated on workstation # [id number]
== END ==
LOC: RAD 09:52
PROVIDERS: ATTEND Podiatrist Foot & Ankle Surgery
DX: M19.071 Primary osteoarthritis, right ankle and foot (principal); M86.8X7 Other osteomyelitis, ankle and foot; M00.871 Arthritis due to other bacteria, right ankle and foot; L97.519 Non-pressure chronic ulcer of other part of right foot with unspecified severity